=== PATIENT | male | born 1990 | race Caucasian/White ===

== ENCOUNTER → 2020-10-09 10:03 | Outpatient (CLI) | payer OTHER, SELFPAY ==
[2020-10-09 11:31] LABS: Liquefaction Semen YES (YES); PH Semen 8.5 (7-8); Sperm Count 90 x10^6/mL (20-150); Sperm Motility 40% % Motile
[2020-10-09 11:32] LABS: Sperm Morphology 44 %ABNORM (0-30)
== END ==
PROVIDERS: PCP Radiology Diagnostic Radiology; Referring Provider Obstetrics & Gynecology; Visit Provider Obstetrics & Gynecology
DX: Z31.69 Encounter for other general counseling and advice on procreation (principal)
CPT/HCPCS: 89320

== ENCOUNTER 2023-09-07 14:30 | Outpatient (RCR) | payer OTHER, SELFPAY ==
--- NOTE | 2023-07-12 16:20 | PT.OIE ---
Current Diagnoses Pain in left shoulder (07/12/23) Stiffness of unspecified shoulder, not elsewhere classified (07/12/23) Weakness (07/12/23) Visit Care Team Role Provider Type Breanna Singh MD Primary Care Provider Non-Staff Specialty: Medical Address: [address] [place] [address], [address] Phone: Fax: Email: Deon Marcos Attending Provider Non-Staff Family Provider Referring Provider Specialty: Medical Address: [address] [place] [address], [address] Fax: Email: Physical Therapy Initial Evaluation PT-OP-A Visit Information Start: 07/11/23 16:17 Freq: Status: Active Protocol: Document 07/12/23 11:28 SAK (Rec: 07/12/23 12:22 SAK [id number]) Out-Patient Physical Therapy Visit Information Visit Information Visit Type Initial Evaluation Visit Start Time 11:29 Visit Stop Time 12:07 Visit Number 1 PT-OP-B Current Condition Start: 07/11/23 16:17 Freq: Status: Active Protocol: Document 07/12/23 11:28 SAK (Rec: 07/12/23 12:22 SAK [id number]) Current Condition History of Current Condition Onset Date 1 1/2 years ago Current Complaints bilateral scapular winging left greater than right History of Current Condition 8-10 years ago noted winging of shoulder, has gradully started to limit his mobility and activities including rowing, normal workouts including pushups. Denies injury. No numbness or tingling. Hears grinding with movement of his left shoulder Right handed. Prior Treatments and Tests none no imaging Treatment Goals Patient/Caregiver Goals Be able to do all usual activities without pain or limitation. 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; has desk job Functional Limitations- Recreation/ limited ability to do rowing, Hobbies push-ups, other usual exercises with shoulder PT-OP-C Subjective Start: 07/11/23 16:17 Freq: Status: Active Protocol: Document 07/12/23 11:28 SAK (Rec: 07/12/23 16:20 [facility] [id number]) OP-PT Pain Assessment Pain Assessment Grid Paper Pain Assessment Grid Completed Yes Location Left Shoulder Intensity 3 Scale Used Numeric (0 - 10) Description Aching,With Movement Frequency Frequent Pain Aggravating Factors Activity,Exercise Other Pain Aggravating Factors reaching forward Pain Behaviors Pain Behaviors Facial Grimacing PT-OP-F Manual Assessment Start: 07/11/23 16:17 Freq: Status: Active Protocol: Document 07/12/23 11:28 [facility] (Rec: 07/12/23 12:22 [facility] [id number]) Manual Assessments Soft Tissue Assessment Soft Tissue Mobility Assessment Tight upper traps PT-OP-H Neuro Start: 07/11/23 16:17 Freq: Status: Active Protocol: Document 07/12/23 11:28 [facility] (Rec: 07/12/23 16:20 [facility] [id number]) Sensation Evaluation Gross Sensation Gross Sensation WNL PT-OP-J Posture/Palpation/Skin Start: 07/11/23 16:17 Freq: Status: Active Protocol: Document 07/12/23 11:28 [facility] (Rec: 07/12/23 12:22 [facility] [id number]) Posture Evaluation Position Sitting T-Spine Posture Increased Kyphosis Shoulder Posture (L) Rounded,(R) Rounded,(L) Forward Scapula Posture (L) Protracted,(R) Protracted Arm Posture (L) Internally Rotated,(R) Internally Rotated Palpation Assessment Location left shoulder Palpation Details popping and grinding sensation with AROM shoulder PT-OP-K Range of Motion Start: 07/11/23 16:17 Freq: Status: Active Protocol: Document 07/12/23 11:28 [facility] (Rec: 07/12/23 16:20 [facility] [id number]) Shoulder Goniometric Range of Motion Shoulder Left Flexion 170 Extension 35 Abduction 165 External Rotation at 45 degrees 75 Abduction Internal Rotation 55 Comments pain end range right Shoulder ROM WFL Yes Shoulder ROM Limitations Shoulder ROM Limitations Pain Elbow/Forearm Range of Motion Elbow/Forearm may Elbow/Forearm ROM WFL Yes PT-OP-L Special Tests Start: 07/11/23 16:17 Freq: Status: Active Protocol: Document 07/12/23 11:28 [facility] (Rec: 07/12/23 16:20 [facility] [id number]) Special Tests Shoulder Special Tests Grind Labrum Test Results neg Drop Arm Rotator Cuff Test Results neg Clunk Test Test Results negative PT-OP-M Strength Start: 07/11/23 16:17 Freq: Status: Active Protocol: Document 07/12/23 11:28 [facility] (Rec: 07/12/23 16:20 [facility] [id number]) Shoulder Strength Shoulder Manual Muscle Testing Left Flexion 4 Good Extension 4 Good Abduction (C5) 4 Good Adduction 4+ Good+ External Rotation 4 Good Internal Rotation 4- Good- Horizontal Abduction 4- Good- Horizontal Adduction 4 Good Right Flexion 5 Normal Extension 5 Normal Abduction (C5) 5 Normal Adduction 5 Normal External Rotation 4+ Good+ Internal Rotation 4 Good Horizontal Abduction 4 Good Horizontal Adduction 4+ Good+ PT-OP-Q Treatments Start: 07/11/23 16:17 Freq: Status: Active Protocol: Document 07/12/23 11:28 [facility] (Rec: 07/12/23 12:22 [facility] [id number]) Self-Care/Home Management Treatment Education Patient Education Home Exercise Program,Posture Other Education issued written HO PT-OP-T Assessment and Plan Start: 07/11/23 16:17 Freq: Status: Active Protocol: Document 07/12/23 11:28 [facility] (Rec: 07/12/23 12:22 [facility] [id number]) Physical Therapy Assessment Rehab Potential Rehabilitation Potential Good Evaluation Complexity Number of Personal Factors/Comorbidities 1-2 Number of Body Systems Impaired 3 Clinical Presentation at Evaluation Evolving Impairments Impairments Activity Tolerance,Posture, Strength Goals Two Impairment inability to perform usual recreational activites or workouts Impairment due to shoulder pain Short Term Goal (STG) Decrease pain by at least 50% with all usual activities STG Duration 08/10/23 Custodial Goal (LTG) Patient able to return to all prior activities without an increase in shoulder pain LTG Duration 09/10/23 One Impairment weakness may shoulders left greater than right Short Term Goal (STG) Patient to be instructed in HEP for the purposes of strengthening and stabilization of his shoulders to support therapy activities in clinic STG Duration 08/10/23 Gas Examiner Goal (LTG) Patient to be independent and compliant with HEP and demonstrate 5/5 muscle strengthe may shoulders LTG Duration 09/10/23 Assessment Summary Assessment Patient presents to PT with function-limiting pain with scapular winging may left greater than right and grinding sensation with movement left shoulder. Eval reveals weakness posterior shoulders, decreased stability left shoulder with altered scapulohumeral rhythm. Feel he will benefit from PT to improve posture, strength, and stability in his shoulders. Patient is highly motivated and demonstrated good understanding. Patient was issued an initial HEP. Discussed POC and he was in agreement. Physical Therapy Plan Frequency and Duration Frequency of Treatment 2x/Week Duration of treatment (weeks) 8 Plan of Care Start Date 07/12/23 Plan of Care End Date 09/10/23 Therapeutic Interventions Therapeutic Interventions Home Exercise Program,Manual Therapy,Patient/Caregiver Education,Self-Care/Home Management,Therapeutic Exercises Modalities Cold Pack/Ice Massage,Electric Stimulation,Hot Packs, Iontophoresis,Ultrasound Next Visit Focus/Plan Next Note Type Treatment Note Next Visit Plan Review HEP, work on scapular strengthening and shoulder stabilization, posterior chain strengthening, modalities and manual therapy PRN.
--- NOTE | 2023-07-12 16:21 | PT.OPPOC ---
Physical, Occupational & Speech Therapy At [facility] Current Diagnoses Pain in left shoulder (07/12/23) Stiffness of unspecified shoulder, not elsewhere classified (07/12/23) Weakness (07/12/23) Visit Care Team Role Provider Type Breanna Singh MD Primary Care Provider Non-Staff Specialty: Medical Address: [address] [place] [address], [address] Phone: Fax: Email: Deon Marcos Attending Provider Non-Staff Family Provider Referring Provider Specialty: Medical Address: [address] [place] [address], [address] Fax: Email: Plan Of Care PT-OP-T Assessment and Plan Start: 07/11/23 16:17 Freq: Status: Active Protocol: Document 07/12/23 11:28 [facility] (Rec: 07/12/23 12:22 [facility] [id number]) Physical Therapy Assessment Rehab Potential Rehabilitation Potential Good Evaluation Complexity Number of Personal Factors/Comorbidities 1-2 Number of Body Systems Impaired 3 Clinical Presentation at Evaluation Evolving Impairments Impairments Activity Tolerance,Posture, Strength Goals Two Impairment inability to perform usual recreational activites or workouts Impairment due to shoulder pain Short Term Goal (STG) Decrease pain by at least 50% with all usual activities STG Duration 08/10/23 Records Management Specialist Goal (LTG) Patient able to return to all prior activities without an increase in shoulder pain LTG Duration 09/10/23 One Impairment weakness may shoulders left greater than right Short Term Goal (STG) Patient to be instructed in HEP for the purposes of strengthening and stabilization of his shoulders to support therapy activities in clinic STG Duration 08/10/23 [facility] Goal (LTG) Patient to be independent and compliant with HEP and demonstrate 5/5 muscle strengthe may shoulders LTG Duration 09/10/23 Assessment Summary Assessment Patient presents to PT with function-limiting pain with scapular winging may left greater than right and grinding sensation with movement left shoulder. Eval reveals weakness posterior shoulders, decreased stability left shoulder with altered scapulohumeral rhythm. Feel he will benefit from PT to improve posture, strength, and stability in his shoulders. Patient is highly motivated and demonstrated good understanding. Patient was issued an initial HEP. Discussed POC and he was in agreement. Physical Therapy Plan Frequency and Duration Frequency of Treatment 2x/Week Duration of treatment (weeks) 8 Plan of Care Start Date 07/12/23 Plan of Care End Date 09/10/23 Therapeutic Interventions Therapeutic Interventions Home Exercise Program,Manual Therapy,Patient/Caregiver Education,Self-Care/Home Management,Therapeutic Exercises Modalities Cold Pack/Ice Massage,Electric Stimulation,Hot Packs, Iontophoresis,Ultrasound Next Visit Focus/Plan Next Note Type Treatment Note Next Visit Plan Review HEP, work on scapular strengthening and shoulder stabilization, posterior chain strengthening, modalities and manual therapy PRN. Plan of Care Dates Plan of Care Start Date 07/12/23 Plan of Care End Date 09/10/23 Electronically Signed by: Anh Lee, PT 07/12/23 1553 If you are in agreement with this Plan of Care, please return a signed and dated copy. I have reviewed this Plan of Care and certify that the skilled therapy services above are required to meet the patient?s needs. Physician Signature Date Printed Name and Credentials Clinical Instructor Signature Printed Name and Credentials
--- NOTE | 2023-07-27 10:29 | PT.OTN ---
Current Diagnoses Pain in left shoulder (07/27/23) Stiffness of unspecified shoulder, not elsewhere classified (07/27/23) Weakness (07/27/23) Physical Therapy Treatment Note PT-OP-A Visit Information Start: 07/11/23 16:17 Freq: Status: Active Protocol: Document 07/27/23 09:49 SP (Rec: 07/27/23 10:31 SP [id number]) Out-Patient Physical Therapy Visit Information Visit Information Visit Type Treatment Note Visit Start Time 09:49 Visit Stop Time 10:29 Visit Number 2 Number of HOME CONNECT LPN Visits 1 PT-OP-B Current Condition Start: 07/11/23 16:17 Freq: Status: Active Protocol: Document 07/12/23 11:28 SAK (Rec: 07/12/23 12:22 SAK [id number]) Current Condition History of Current Condition Onset Date 1 1/2 years ago Current Complaints bilateral scapular winging left greater than right History of Current Condition 8-10 years ago noted winging of shoulder, has gradully started to limit his mobility and activities including rowing, normal workouts including pushups. Denies injury. No numbness or tingling. Hears grinding with movement of his left shoulder Right handed. Prior Treatments and Tests none no imaging Treatment Goals Patient/Caregiver Goals Be able to do all usual activities without pain or limitation. 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 He reports L > R is irritated and clicking with daily activity. New WB on L elbow as arm rest oncouch feeding twins hurt not last > 20 sec before need stop, R ok. PT-OP-F Manual Assessment Start: 07/11/23 16:17 Freq: Status: Active Protocol: Document 07/12/23 11:28 [facility] (Rec: 07/12/23 12:22 [facility] [id number]) Manual Assessments Soft Tissue Assessment Soft Tissue Mobility Assessment Tight upper traps PT-OP-H Neuro Start: 07/11/23 16:17 Freq: Status: Active Protocol: Document 07/12/23 11:28 [facility] (Rec: 07/12/23 16:20 [facility] [id number]) Sensation Evaluation Gross Sensation Gross Sensation WNL PT-OP-J Posture/Palpation/Skin Start: 07/11/23 16:17 Freq: Status: Active Protocol: Document 07/12/23 11:28 [facility] (Rec: 07/12/23 12:22 [facility] [id number]) Posture Evaluation Position Sitting T-Spine Posture Increased Kyphosis Shoulder Posture (L) Rounded,(R) Rounded,(L) Forward Scapula Posture (L) Protracted,(R) Protracted Arm Posture (L) Internally Rotated,(R) Internally Rotated Palpation Assessment Location left shoulder Palpation Details popping and grinding sensation with AROM shoulder PT-OP-K Range of Motion Start: 07/11/23 16:17 Freq: Status: Active Protocol: Document 07/12/23 11:28 [facility] (Rec: 07/12/23 16:20 [facility] [id number]) Shoulder Goniometric Range of Motion Shoulder Left Flexion 170 Extension 35 Abduction 165 External Rotation at 45 degrees 75 Abduction Internal Rotation 55 Comments pain end range right Shoulder ROM WFL Yes Shoulder ROM Limitations Shoulder ROM Limitations Pain Elbow/Forearm Range of Motion Elbow/Forearm may Elbow/Forearm ROM WFL Yes PT-OP-L Special Tests Start: 07/11/23 16:17 Freq: Status: Active Protocol: Document 07/12/23 11:28 [facility] (Rec: 07/12/23 16:20 [facility] [id number]) Special Tests Shoulder Special Tests Grind Labrum Test Results neg Drop Arm Rotator Cuff Test Results neg Clunk Test Test Results negative PT-OP-M Strength Start: 07/11/23 16:17 Freq: Status: Active Protocol: Document 07/12/23 11:28 [facility]AK (Rec: 07/12/23 16:20 [facility] [id number]) Shoulder Strength Shoulder Manual Muscle Testing Left Flexion 4 Good Extension 4 Good Abduction (C5) 4 Good Adduction 4+ Good+ External Rotation 4 Good Internal Rotation 4- Good- Horizontal Abduction 4- Good- Horizontal Adduction 4 Good Right Flexion 5 Normal Extension 5 Normal Abduction (C5) 5 Normal Adduction 5 Normal External Rotation 4+ Good+ Internal Rotation 4 Good Horizontal Abduction 4 Good Horizontal Adduction 4+ Good+ PT-OP-Q Treatments Start: 07/11/23 16:17 Freq: Status: Active Protocol: Document 07/27/23 09:49 SP (Rec: 07/27/23 10:31 SP [id number]) Therapeutic Exercises Supine Exercises serratus press Side bilateral Resistance AROM Reps/Minutes 10 reps hold 5 sec Comments discussed not performed Sidelying Exercises ER Side bilateral Resistance AROM Reps/Minutes 10x hold 5 sec Comments discussed not performed ABD, HABD, FF Sidelying Exercise Name added to HEP Side bilateral Resistance AROM Reps/Minutes x8-10 each Comments ed slow, tactile cues Standing Exercises reach OH Standing Exercise Name reviewed HEP Resistance AROM Comments discussed is doing but pinching, not performed isometrics Standing Exercise Name Flex, ext, IR, ER, ADD, ABD- reviewed HEP Side bilateral Equipment Used towel roll under arm for IR/ ER Reps/Minutes 5 SH x5 Comments good form at door frame Manual Therapy Treatment Joint Mobilizations L GH jt Direction inf, posterior glide Grade II Body Position Hooklying B scapulothoracic Joint tactile cues Direction retraction/protraction/ depression/UR Body Position side Comments /c FM FF, ABD, HABD PT-OP-T Assessment and Plan Start: 07/11/23 16:17 Freq: Status: Active Protocol: Document 07/27/23 09:49 SP (Rec: 07/27/23 10:31 SP [id number]) Physical Therapy Assessment Goals Two Impairment inability to perform usual recreational activites or workouts Impairment due to shoulder pain Short Term Goal (STG) Decrease pain by at least 50% with all usual activities STG Duration 08/10/23 Fdc Goal (LTG) Patient able to return to all prior activities without an increase in shoulder pain LTG Duration 09/10/23 One Impairment weakness may shoulders left greater than right Short Term Goal (STG) Patient to be instructed in [facility] for the purposes of strengthening and stabilization of his shoulders to support therapy activities in clinic STG Duration 08/10/23 Lens Blocker Goal (LTG) Patient to be independent and compliant with HEP and demonstrate 5/5 muscle strengthe may shoulders LTG Duration 09/10/23 Assessment Summary Assessment Pt able perform improved proximal humeral inferior glide and scapular UR ROM during sidelying FF, ABD, HABD post manual painfree, initially required tactile and verbal cues for slower pacing and scapular/GH guided ROM with humeral into long axis ER 90 deg ABD +. Provided HOs for carryover home performance as additional HEP. Good form UE isometrics, occasional cues for set up. Education for trunk and CS postural awareness with HEP retraction scap/ CS to allow decrease strain on neck/scap looking at baby twins during feeding, play. Improved carryover with cued corrections CS alignment during standing HEP. Physical Therapy Plan Frequency and Duration Frequency of Treatment 2x/Week Duration of treatment (weeks) 8 Plan of Care Start Date 07/12/23 Plan of Care End Date 09/10/23 Therapeutic Interventions Therapeutic Interventions Home Exercise Program,Manual Therapy,Patient/Caregiver Education,Self-Care/Home Management,Therapeutic Exercises Modalities Cold Pack/Ice Massage,Electric Stimulation,Hot Packs, Iontophoresis,Ultrasound Next Visit Focus/Plan Next Note Type Treatment Note Next Visit Plan Review HEP, Next add adduction and humeral deprresssion to support WB through elbow discomfort during feeding twins. POC: work on scapular strengthening and shoulder stabilization, posterior chain strengthening, modalities and manual therapy PRN.
--- NOTE | 2023-08-03 10:52 | PT.OTN ---
Current Diagnoses Pain in left shoulder (08/03/23) Stiffness of unspecified shoulder, not elsewhere classified (08/03/23) Weakness (08/03/23) Physical Therapy Treatment Note PT-OP-A Visit Information Start: 07/11/23 16:17 Freq: Status: Active Protocol: Document 08/03/23 08:14 SAK (Rec: 08/03/23 09:01 [facility] [id number]) Out-Patient Physical Therapy Visit Information Visit Information Visit Type Treatment Note Visit Start Time 08:14 Visit Stop Time 09:02 Visit Number 3 Number of GREEN MARKETING SPECIALIST Visits 0 Evaluation Information Evaluation Date 07/12/23 PT-OP-B Current Condition Start: 07/11/23 16:17 Freq: Status: Active Protocol: Document 08/03/23 08:14 SAK (Rec: 08/03/23 09:01 [facility] [id number]) Current Condition History of Current Condition Onset Date 1 1/2 years ago Current Complaints bilateral scapular winging left greater than right History of Current Condition 8-10 years ago noted winging of shoulder, has gradully started to limit his mobility and activities including rowing, normal workouts including pushups. Denies injury. No numbness or tingling. Hears grinding with movement of his left shoulder Right handed. Prior Treatments and Tests none no imaging Treatment Goals Patient/Caregiver Goals Be able to do all usual activities without pain or limitation. PT-OP-C Subjective Start: 07/11/23 16:17 Freq: Status: Active Protocol: Document 08/03/23 08:14 SAK (Rec: 08/03/23 09:01 [facility] [id number]) OP-PT Subjective Patient Comments Patient Comments No real change, min ability to do ex due to twin infants PT-OP-F Manual Assessment Start: 07/11/23 16:17 Freq: Status: Active Protocol: Document 07/12/23 11:28 SAK (Rec: 07/12/23 12:22 SAK [id number]) Manual Assessments Soft Tissue Assessment Soft Tissue Mobility Assessment Tight upper traps PT-OP-H Neuro Start: 07/11/23 16:17 Freq: Status: Active Protocol: Document 07/12/23 11:28 SAK (Rec: 07/12/23 16:20 SAK [id number]) Sensation Evaluation Gross Sensation Gross Sensation WNL PT-OP-J Posture/Palpation/Skin Start: 07/11/23 16:17 Freq: Status: Active Protocol: Document 07/12/23 11:28 [facility] (Rec: 07/12/23 12:22 [facility] [id number]) Posture Evaluation Position Sitting T-Spine Posture Increased Kyphosis Shoulder Posture (L) Rounded,(R) Rounded,(L) Forward Scapula Posture (L) Protracted,(R) Protracted Arm Posture (L) Internally Rotated,(R) Internally Rotated Palpation Assessment Location left shoulder Palpation Details popping and grinding sensation with AROM shoulder PT-OP-K Range of Motion Start: 07/11/23 16:17 Freq: Status: Active Protocol: Document 07/12/23 11:28 [facility] (Rec: 07/12/23 16:20 [facility] [id number]) Shoulder Goniometric Range of Motion Shoulder Left Flexion 170 Extension 35 Abduction 165 External Rotation at 45 degrees 75 Abduction Internal Rotation 55 Comments pain end range right Shoulder ROM WFL Yes Shoulder ROM Limitations Shoulder ROM Limitations Pain Elbow/Forearm Range of Motion Elbow/Forearm may Elbow/Forearm ROM WFL Yes PT-OP-L Special Tests Start: 07/11/23 16:17 Freq: Status: Active Protocol: Document 07/12/23 11:28 [facility] (Rec: 07/12/23 16:20 [facility] [id number]) Special Tests Shoulder Special Tests Grind Labrum Test Results neg Drop Arm Rotator Cuff Test Results neg Clunk Test Test Results negative PT-OP-M Strength Start: 07/11/23 16:17 Freq: Status: Active Protocol: Document 07/12/23 11:28 [facility] (Rec: 07/12/23 16:20 [facility] [id number]) Shoulder Strength Shoulder Manual Muscle Testing Left Flexion 4 Good Extension 4 Good Abduction (C5) 4 Good Adduction 4+ Good+ External Rotation 4 Good Internal Rotation 4- Good- Horizontal Abduction 4- Good- Horizontal Adduction 4 Good Right Flexion 5 Normal Extension 5 Normal Abduction (C5) 5 Normal Adduction 5 Normal External Rotation 4+ Good+ Internal Rotation 4 Good Horizontal Abduction 4 Good Horizontal Adduction 4+ Good+ PT-OP-Q Treatments Start: 07/11/23 16:17 Freq: Status: Active Protocol: Document 08/03/23 08:14 [facility] (Rec: 08/03/23 09:01 SAK [id number]) Therapeutic Exercises Supine Exercises serratus press Side bilateral Equipment Used 4# Reps/Minutes 10 reps hold 5 sec Sitting Exercises scap engagement Sitting Exercise Name elbow on bolster Reps/Minutes 5x Comments pressure into bolster to facil scap engagement and shoulder stab Standing Exercises shoulder add Equipment Used L2 TB Reps/Minutes 5x Comments discontinued; unable to do without popping and clicking in left shoulder row, shld ext, sh ER Resistance L2 TB Reps/Minutes 10x2 Body blade Standing Exercise Name may, unil Reps/Minutes 30 sec ea Comments may in front, unil at side, elbow bent 90 fwd, elbow bIR/ ER, overhead 90/90 isometrics Comments encouraged tracie add due to poor sara TB PT-OP-T Assessment and Plan Start: 07/11/23 16:17 Freq: Status: Active Protocol: Document 08/03/23 08:14 ROYCE (Rec: 08/03/23 09:01 [facility] [id number]) Physical Therapy Assessment Goals Two Impairment inability to perform usual recreational activites or workouts Impairment due to shoulder pain Short Term Goal (STG) Decrease pain by at least 50% with all usual activities STG Duration 08/10/23 Mcc Goal (LTG) Patient able to return to all prior activities without an increase in shoulder pain LTG Duration 09/10/23 One Impairment weakness may shoulders left greater than right Short Term Goal (STG) Patient to be instructed in HEP for the purposes of strengthening and stabilization of his shoulders to support therapy activities in clinic STG Duration 08/10/23 Mcc Goal (LTG) Patient to be independent and compliant with HEP and demonstrate 5/5 muscle strengthe may shoulders LTG Duration 09/10/23 Assessment Summary Assessment Patient best tolerance for left shoulder elevation supine over foam roller with theraband resistance. Able to add weight to supine scapular punch with good tolerance. Ran out of time to review sidelying ex; recommend do next session. Updated written HO issued for HEP. Patient better able to feel engagement of scapular muscles today. Physical Therapy Plan Frequency and Duration Frequency of Treatment 2x/Week Duration of treatment (weeks) 8 Plan of Care Start Date 07/12/23 Plan of Care End Date 09/10/23 Therapeutic Interventions Therapeutic Interventions Home Exercise Program,Manual Therapy,Patient/Caregiver Education,Self-Care/Home Management,Therapeutic Exercises Modalities Cold Pack/Ice Massage,Electric Stimulation,Hot Packs, Iontophoresis,Ultrasound Next Visit Focus/Plan Next Note Type Treatment Note Next Visit Plan Review HEP, any issues. Continue shoulder stabilization, scap strenthening. Progress exercises supine on foam roller, prone scap, with body blade
--- NOTE | 2023-08-07 08:57 | PT.OTN ---
Current Diagnoses Pain in left shoulder (08/07/23) Stiffness of unspecified shoulder, not elsewhere classified (08/07/23) Weakness (08/07/23) Physical Therapy Treatment Note PT-OP-A Visit Information Start: 07/11/23 16:17 Freq: Status: Active Protocol: Document 08/07/23 08:15 SP (Rec: 08/07/23 09:01 SP [id number]) Out-Patient Physical Therapy Visit Information Visit Information Visit Type Treatment Note Visit Start Time 08:15 Visit Stop Time 08:57 Visit Number 4 Number of FORESTRY WORKER Visits 1 Evaluation Information Evaluation Date 07/12/23 PT-OP-B Current Condition Start: 07/11/23 16:17 Freq: Status: Active Protocol: Document 08/03/23 08:14 SAK (Rec: 08/03/23 09:01 SAK [id number]) Current Condition History of Current Condition Onset Date 1 1/2 years ago Current Complaints bilateral scapular winging left greater than right History of Current Condition 8-10 years ago noted winging of shoulder, has gradully started to limit his mobility and activities including rowing, normal workouts including pushups. Denies injury. No numbness or tingling. Hears grinding with movement of his left shoulder Right handed. Prior Treatments and Tests none no imaging Treatment Goals Patient/Caregiver Goals Be able to do all usual activities without pain or limitation. PT-OP-C Subjective Start: 07/11/23 16:17 Freq: Status: Active Protocol: Document 08/07/23 08:15 SP (Rec: 08/07/23 09:01 SP [id number]) OP-PT Subjective Patient Comments Patient Comments Pt reports little less pain but doing alot so hard to tell . More mobility. COmpliant with HEP. PT-OP-F Manual Assessment Start: 07/11/23 16:17 Freq: Status: Active Protocol: Document 07/12/23 11:28 SAK (Rec: 07/12/23 12:22 SAK [id number]) Manual Assessments Soft Tissue Assessment Soft Tissue Mobility Assessment Tight upper traps PT-OP-H Neuro Start: 07/11/23 16:17 Freq: Status: Active Protocol: Document 07/12/23 11:28 SAK (Rec: 07/12/23 16:20 SAK [id number]) Sensation Evaluation Gross Sensation Gross Sensation WNL PT-OP-J Posture/Palpation/Skin Start: 02/13/24 16:17 Freq: Status: Active Protocol: Document 07/12/23 11:28 SAK (Rec: 07/12/23 12:22 SAK [id number]) Posture Evaluation Position Sitting T-Spine Posture Increased Kyphosis Shoulder Posture (L) Rounded,(R) Rounded,(L) Forward Scapula Posture (L) Protracted,(R) Protracted Arm Posture (L) Internally Rotated,(R) Internally Rotated Palpation Assessment Location left shoulder Palpation Details popping and grinding sensation with AROM shoulder PT-OP-K Range of Motion Start: 07/11/23 16:17 Freq: Status: Active Protocol: Document 07/12/23 11:28 SAK (Rec: 07/12/23 16:20 SAK [id number]) Shoulder Goniometric Range of Motion Shoulder Left Flexion 170 Extension 35 Abduction 165 External Rotation at 45 degrees 75 Abduction Internal Rotation 55 Comments pain end range right Shoulder ROM WFL Yes Shoulder ROM Limitations Shoulder ROM Limitations Pain Elbow/Forearm Range of Motion Elbow/Forearm may Elbow/Forearm ROM WFL Yes PT-OP-L Special Tests Start: 07/11/23 16:17 Freq: Status: Active Protocol: Document 07/12/23 11:28 SAK (Rec: 07/12/23 16:20 SAK [id number]) Special Tests Shoulder Special Tests Grind Labrum Test Results neg Drop Arm Rotator Cuff Test Results neg Clunk Test Test Results negative PT-OP-M Strength Start: 07/11/23 16:17 Freq: Status: Active Protocol: Document 07/12/23 11:28 SAK (Rec: 07/12/23 16:20 [facility] [id number]) Shoulder Strength Shoulder Manual Muscle Testing Left Flexion 4 Good Extension 4 Good Abduction (C5) 4 Good Adduction 4+ Good+ External Rotation 4 Good Internal Rotation 4- Good- Horizontal Abduction 4- Good- Horizontal Adduction 4 Good Right Flexion 5 Normal Extension 5 Normal Abduction (C5) 5 Normal Adduction 5 Normal External Rotation 4+ Good+ Internal Rotation 4 Good Horizontal Abduction 4 Good Horizontal Adduction 4+ Good+ PT-OP-Q Treatments Start: 07/11/23 16:17 Freq: Status: Active Protocol: Document 08/07/23 08:15 SP (Rec: 08/07/23 09:01 SP [id number]) Therapeutic Exercises Supine Exercises serratus press Supine Exercise Name 1. SP 2. Ts- added to HEP (no HO given) Side bilateral Resistance 5# DB Equipment Used spine along foam roller (has bench home) Reps/Minutes 1. 10 reps hold 5 sec 2. x10 Comments good form, every 5 little click but not pnful Prone Exercises Ts, Is, Ys Prone Exercise Name trialed in PT- added to HEP ( no HO given) Side bilateral Resistance AROM>#1 DB Reps/Minutes 10 each Comments tactile cues for arm positioning, neck neutral forehead on opp arm Sitting Exercises scap engagement Sitting Exercise Name arms locked out hands on seat/ scap pushup Equipment Used bench Reps/Minutes x5 Comments cued scap retraction set 1st Standing Exercises shoulder add Equipment Used L2> 6 TB Reps/Minutes 5x Comments discontinued; unable to do without popping and clicking in left shoulder row, shld ext, sh ER Standing Exercise Name HEP reviewed Resistance L2>4>5>6 purple TB Equipment Used L6 ext, L6+2 row, L2 ER Reps/Minutes 10x2 each Comments reported good effort, cued palm up/elbow flex 120 deg then ER/rhomb con&ecc PT-OP-T Assessment and Plan Start: 07/11/23 16:17 Freq: Status: Active Protocol: Document 08/07/23 08:15 SP (Rec: 08/07/23 09:01 SP [id number]) Physical Therapy Assessment Goals Two Impairment inability to perform usual recreational activites or workouts Impairment due to shoulder pain Short Term Goal (STG) Decrease pain by at least 50% with all usual activities STG Duration 08/10/23 Penitentiary Goal (LTG) Patient able to return to all prior activities without an increase in shoulder pain LTG Duration 09/10/23 One Impairment weakness may shoulders left greater than right Short Term Goal (STG) Patient to be instructed in HEP for the purposes of strengthening and stabilization of his shoulders to support therapy activities in clinic STG Duration 08/10/23 Penitentiary Goal (LTG) Patient to be independent and compliant with HEP and demonstrate 5/5 muscle strengthe may shoulders LTG Duration 09/10/23 Assessment Summary Assessment Pt was able to increased TB resistance today with improved rhomboid and LT fac and corrections set positioning concentric and eccentric with tactile cuing. Added prone and supine over foam roller ( bench home) with resistance, little clicks but arm ER range needed helped to reduce this for progression strengthening. He reports no pain end tx. Physical Therapy Plan Frequency and Duration Frequency of Treatment 2x/Week Duration of treatment (weeks) 8 Plan of Care Start Date 07/12/23 Plan of Care End Date 09/10/23 Therapeutic Interventions Therapeutic Interventions Home Exercise Program,Manual Therapy,Patient/Caregiver Education,Self-Care/Home Management,Therapeutic Exercises Modalities Cold Pack/Ice Massage,Electric Stimulation,Hot Packs, Iontophoresis,Ultrasound Next Visit Focus/Plan Next Note Type Treatment Note Next Visit Plan Review HEP, any issues. Continue shoulder stabilization, scap strenthening. Progress exercises supine on foam roller, prone scap, with body blade
--- NOTE | 2023-08-09 08:58 | PT.OTN ---
Current Diagnoses Pain in left shoulder (08/09/23) Stiffness of unspecified shoulder, not elsewhere classified (08/09/23) Weakness (08/09/23) Physical Therapy Treatment Note PT-OP-A Visit Information Start: 07/11/23 16:17 Freq: Status: Active Protocol: Document 08/09/23 08:20 SP (Rec: 08/09/23 09:00 SP [id number]) Out-Patient Physical Therapy Visit Information Visit Information Visit Type Treatment Note Visit Start Time 08:20 Visit Stop Time 08:58 Visit Number 5 Number of ASSEMBLER PING PONG TABLE Visits 2 PT-OP-B Current Condition Start: 07/11/23 16:17 Freq: Status: Active Protocol: Document 08/03/23 08:14 SAK (Rec: 08/03/23 09:01 SAK [id number]) Current Condition History of Current Condition Onset Date 1 1/2 years ago Current Complaints bilateral scapular winging left greater than right History of Current Condition 8-10 years ago noted winging of shoulder, has gradully started to limit his mobility and activities including rowing, normal workouts including pushups. Denies injury. No numbness or tingling. Hears grinding with movement of his left shoulder Right handed. Prior Treatments and Tests none no imaging Treatment Goals Patient/Caregiver Goals Be able to do all usual activities without pain or limitation. PT-OP-C Subjective Start: 07/11/23 16:17 Freq: Status: Active Protocol: Document 08/09/23 08:20 SP (Rec: 08/09/23 16:47 SP [id number]) OP-PT Subjective Patient Comments Patient Comments Pt reports felt ok after last tx. He still has pain with pushing forward motions and or holding out in front with LUE . PT-OP-F Manual Assessment Start: 07/11/23 16:17 Freq: Status: Active Protocol: Document 07/12/23 11:28 SAK (Rec: 07/12/23 12:22 SAK [id number]) Manual Assessments Soft Tissue Assessment Soft Tissue Mobility Assessment Tight upper traps PT-OP-H Neuro Start: 07/11/23 16:17 Freq: Status: Active Protocol: Document 07/12/23 11:28 SAK (Rec: 07/12/23 16:20 SAK [id number]) Sensation Evaluation Gross Sensation Gross Sensation WNL PT-OP-J Posture/Palpation/Skin Start: 07/11/23 16:17 Freq: Status: Active Protocol: Document 07/12/23 11:28 [facility] (Rec: 07/12/23 12:22 SAK [id number]) Posture Evaluation Position Sitting T-Spine Posture Increased Kyphosis Shoulder Posture (L) Rounded,(R) Rounded,(L) Forward Scapula Posture (L) Protracted,(R) Protracted Arm Posture (L) Internally Rotated,(R) Internally Rotated Palpation Assessment Location left shoulder Palpation Details popping and grinding sensation with AROM shoulder PT-OP-K Range of Motion Start: 07/11/23 16:17 Freq: Status: Active Protocol: Document 07/12/23 11:28 SAK (Rec: 07/12/23 16:20 SAK [id number]) Shoulder Goniometric Range of Motion Shoulder Left Flexion 170 Extension 35 Abduction 165 External Rotation at 45 degrees 75 Abduction Internal Rotation 55 Comments pain end range right Shoulder ROM WFL Yes Shoulder ROM Limitations Shoulder ROM Limitations Pain Elbow/Forearm Range of Motion Elbow/Forearm may Elbow/Forearm ROM WFL Yes PT-OP-L Special Tests Start: 07/11/23 16:17 Freq: Status: Active Protocol: Document 07/12/23 11:28 [facility] (Rec: 07/12/23 16:20 SAK [id number]) Special Tests Shoulder Special Tests Grind Labrum Test Results neg Drop Arm Rotator Cuff Test Results neg Clunk Test Test Results negative PT-OP-M Strength Start: 07/11/23 16:17 Freq: Status: Active Protocol: Document 07/12/23 11:28 SAK (Rec: 07/12/23 16:20 [facility] [id number]) Shoulder Strength Shoulder Manual Muscle Testing Left Flexion 4 Good Extension 4 Good Abduction (C5) 4 Good Adduction 4+ Good+ External Rotation 4 Good Internal Rotation 4- Good- Horizontal Abduction 4- Good- Horizontal Adduction 4 Good Right Flexion 5 Normal Extension 5 Normal Abduction (C5) 5 Normal Adduction 5 Normal External Rotation 4+ Good+ Internal Rotation 4 Good Horizontal Abduction 4 Good Horizontal Adduction 4+ Good+ PT-OP-Q Treatments Start: 07/11/23 16:17 Freq: Status: Active Protocol: Document 08/09/23 08:20 SP (Rec: 08/09/23 09:00 SP [id number]) Therapeutic Exercises Supine Exercises pec stretch Supine Exercise Name stretch various angles, snow angles Side bilateral Equipment Used over foam roller Reps/Minutes 10 SH 3 positions, 5 reps Comments feels fine serratus press Supine Exercise Name 1. FF 2. SerrPress 3. Ts- added to HEP (no HO given) Side bilateral Resistance 1. 7# DB 2-3. 5# DB (7# next tx) Equipment Used spine along foam roller (has bench home) Reps/Minutes 1. 10 reps hold 5 sec 2. x10 Comments good form, every 5 little click but not pnful Prone Exercises Ts, Is, Ys Prone Exercise Name added to HEP (no HO given) Side bilateral Resistance 3>5#DB Ts, Is, AROM Ys Reps/Minutes 10 each Comments tactile cues for arm positioning Ys, neck neutral forehead on opp arm Standing Exercises pushc up Standing Exercise Name assess off feet, tall BUEs- has PRT in2 weeks Resistance (? reps for PRT) Reps/Minutes 5 reps Comments occ slight wing but stop able reset elbow plank Standing Exercise Name assess off feet- for PRT in 2 weeks Equipment Used (2 min hold for PRT) Comments winging after 3 sec- challenge Ys off wall Standing Exercise Name trialed in PT- added to HEP declined HO Side bilateral Resistance TB #3 Reps/Minutes x12 Comments slight occ clicking, not pain wall walking Standing Exercise Name BUEs on rail- added to HEP- declined HO Resistance TB #2 Equipment Used on rail best (tall ff 90 deg and elbow winging) Reps/Minutes 20 ft x Comments reports good tiring but Body blade Standing Exercise Name may front only & unil multidirectional Reps/Minutes 30 sec ea Comments may in front; unil at side, elbow bent 90 fwd, elbow bIR/ ER, overhead 90/90 PT-OP-T Assessment and Plan Start: 07/11/23 16:17 Freq: Status: Active Protocol: Document 08/09/23 08:20 SP (Rec: 08/09/23 09:00 SP [id number]) Physical Therapy Assessment Goals Two Impairment inability to perform usual recreational activites or workouts Impairment due to shoulder pain Short Term Goal (STG) Decrease pain by at least 50% with all usual activities STG Duration 08/10/23 Detention Goal (LTG) Patient able to return to all prior activities without an increase in shoulder pain LTG Duration 09/10/23 One Impairment weakness may shoulders left greater than right Short Term Goal (STG) Patient to be instructed in HEP for the purposes of strengthening and stabilization of his shoulders to support therapy activities in clinic STG Duration 08/10/23 Detention Goal (LTG) Patient to be independent and compliant with HEP and demonstrate 5/5 muscle strengthe may shoulders LTG Duration 09/10/23 Assessment Summary Assessment Pt responded well to resisted ther ex, cues as needed for head and scap retract/depress set positioning. Slight crunch during OH Ys off wall but minimized with reps for benefits of progress OH, not pain reported. Still demonstrates serratus weakness elbow plank and occasional push ups, has PRT coming up in 2 weeks needs prep these for success. Good scap mobility and strengthening added UE counter/rail walking for Serratus and pec. Physical Therapy Plan Frequency and Duration Frequency of Treatment 2x/Week Duration of treatment (weeks) 8 Plan of Care Start Date 07/12/23 Plan of Care End Date 09/10/23 Therapeutic Interventions Therapeutic Interventions Home Exercise Program,Manual Therapy,Patient/Caregiver Education,Self-Care/Home Management,Therapeutic Exercises Modalities Cold Pack/Ice Massage,Electric Stimulation,Hot Packs, Iontophoresis,Ultrasound Next Visit Focus/Plan Next Note Type Treatment Note Next Visit Plan Review HEP: added Ys off wall, resiste UE walking rail. Reports pushing forward motions still discomfort crunching sub mid scap/ribcage . next progress Serratus Ant Stengthening ideas: bear plank , lateral plank UE AROM vs resisted walking. Has PRT in 2 weeks: plank and push ups. POC: Continue shoulder stabilization, scap strenthening. Progress exercises supine on foam roller, prone scap, with body blade
--- NOTE | 2023-08-11 11:57 | PT.OTN ---
Current Diagnoses Pain in left shoulder (08/11/23) Stiffness of unspecified shoulder, not elsewhere classified (08/11/23) Weakness (08/11/23) Physical Therapy Treatment Note PT-OP-A Visit Information Start: 07/11/23 16:17 Freq: Status: Active Protocol: Document 08/11/23 11:19 SP (Rec: 08/11/23 12:13 SP [id number]) Out-Patient Physical Therapy Visit Information Visit Information Visit Type Treatment Note Visit Start Time 11:19 Visit Stop Time 11:57 Visit Number 6 Number of PRINT [employer] FEEDER Visits 3 Evaluation Information Evaluation Date 07/12/23 PT-OP-B Current Condition Start: 07/11/23 16:17 Freq: Status: Active Protocol: Document 08/03/23 08:14 SAK (Rec: 08/03/23 09:01 SAK [id number]) Current Condition History of Current Condition Onset Date 1 1/2 years ago Current Complaints bilateral scapular winging left greater than right History of Current Condition 8-10 years ago noted winging of shoulder, has gradully started to limit his mobility and activities including rowing, normal workouts including pushups. Denies injury. No numbness or tingling. Hears grinding with movement of his left shoulder Right handed. Prior Treatments and Tests none no imaging Treatment Goals Patient/Caregiver Goals Be able to do all usual activities without pain or limitation. PT-OP-C Subjective Start: 07/11/23 16:17 Freq: Status: Active Protocol: Document 08/11/23 11:19 SP (Rec: 08/11/23 12:13 SP [id number]) OP-PT Subjective Patient Comments Patient Comments Pt report feels same, the UE walking lower was better. PT-OP-F Manual Assessment Start: 07/11/23 16:17 Freq: Status: Active Protocol: Document 07/12/23 11:28 SAK (Rec: 07/12/23 12:22 SAK [id number]) Manual Assessments Soft Tissue Assessment Soft Tissue Mobility Assessment Tight upper traps PT-OP-H Neuro Start: 07/11/23 16:17 Freq: Status: Active Protocol: Document 07/12/23 11:28 SAK (Rec: 07/12/23 16:20 SAK [id number]) Sensation Evaluation Gross Sensation Gross Sensation WNL PT-OP-J Posture/Palpation/Skin Start: 07/11/23 16:17 Freq: Status: Active Protocol: Document 07/12/23 11:28 SAK (Rec: 07/12/23 12:22 SAK [id number]) Posture Evaluation Position Sitting T-Spine Posture Increased Kyphosis Shoulder Posture (L) Rounded,(R) Rounded,(L) Forward Scapula Posture (L) Protracted,(R) Protracted Arm Posture (L) Internally Rotated,(R) Internally Rotated Palpation Assessment Location left shoulder Palpation Details popping and grinding sensation with AROM shoulder PT-OP-K Range of Motion Start: 07/11/23 16:17 Freq: Status: Active Protocol: Document 07/12/23 11:28 SAK (Rec: 07/12/23 16:20 SAK [id number]) Shoulder Goniometric Range of Motion Shoulder Left Flexion 170 Extension 35 Abduction 165 External Rotation at 45 degrees 75 Abduction Internal Rotation 55 Comments pain end range right Shoulder ROM WFL Yes Shoulder ROM Limitations Shoulder ROM Limitations Pain Elbow/Forearm Range of Motion Elbow/Forearm may Elbow/Forearm ROM WFL Yes PT-OP-L Special Tests Start: 07/11/23 16:17 Freq: Status: Active Protocol: Document 07/12/23 11:28 SAK (Rec: 07/12/23 16:20 SAK [id number]) Special Tests Shoulder Special Tests Grind Labrum Test Results neg Drop Arm Rotator Cuff Test Results neg Clunk Test Test Results negative PT-OP-M Strength Start: 07/11/23 16:17 Freq: Status: Active Protocol: Document 07/12/23 11:28 SAK (Rec: 07/12/23 16:20 [facility] [id number]) Shoulder Strength Shoulder Manual Muscle Testing Left Flexion 4 Good Extension 4 Good Abduction (C5) 4 Good Adduction 4+ Good+ External Rotation 4 Good Internal Rotation 4- Good- Horizontal Abduction 4- Good- Horizontal Adduction 4 Good Right Flexion 5 Normal Extension 5 Normal Abduction (C5) 5 Normal Adduction 5 Normal External Rotation 4+ Good+ Internal Rotation 4 Good Horizontal Abduction 4 Good Horizontal Adduction 4+ Good+ PT-OP-Q Treatments Start: 07/11/23 16:17 Freq: Status: Active Protocol: Document 08/11/23 11:19 SP (Rec: 08/11/23 12:13 SP [id number]) Therapeutic Exercises Prone Exercises plank shld activities Prone Exercise Name 1. BUE/BLE lateral walking 2. UE lat 3. shld taps Reps/Minutes 1. 5 ft out back x2 sets 2. 5 steps out/ back x2 3. alternate x5 reps each Comments cues as needed for serratus press, dec small winging. Standing Exercises ball repetitive abd/ER/IR wall ball Standing Exercise Name trialed for distal RTC pos support Resistance AROM (abd 90*) Equipment Used green wt ball, tennis ball bounce on wall Reps/Minutes 20 throw/catch Comments pnfree, tiriing shld ABD IR, eccentric ER Side bilateral Resistance TB #3 green IR, #2 orange ER Reps/Minutes 10 each, BUE Comments tactile cues maintain 90 deg abd, pnfree reported- good effort ER row, shld ext, sh ER Standing Exercise Name HEP reviewed Side bilateral Equipment Used L6 ext, L6+2 row- (progress free bent over wt row & ER) Reps/Minutes 10x2 each Comments reported good effort Body blade Standing Exercise Name serratus press (90*FF) Resistance body blade and hammer Reps/Minutes 30 sec ea x2 BB, 30s hammer Comments good pec minor, long head bicep tiring haven't felt that spot weakness bf Other Exercises quadruped bear plank Other Exercise Name trialed bear plank (quadruped with knee lift) Reps/Minutes 30 SH, 60SH Comments cues for serratus press, knee lift maintain- good quad, core , ok SA PT-OP-T Assessment and Plan Start: 07/11/23 16:17 Freq: Status: Active Protocol: Document 08/11/23 11:19 SP (Rec: 08/11/23 12:13 SP [id number]) Physical Therapy Assessment Goals Two Impairment inability to perform usual recreational activites or workouts Impairment due to shoulder pain Short Term Goal (STG) Decrease pain by at least 50% with all usual activities STG Duration 08/10/23 Police Investigator Goal (LTG) Patient able to return to all prior activities without an increase in shoulder pain LTG Duration 09/10/23 One Impairment weakness may shoulders left greater than right Short Term Goal (STG) Patient to be instructed in HEP for the purposes of strengthening and stabilization of his shoulders to support therapy activities in clinic STG Duration 08/10/23 Longterm Goal (LTG) Patient to be independent and compliant with HEP and demonstrate 5/5 muscle strengthe may shoulders LTG Duration 09/10/23 Assessment Summary Assessment Pt reported some tiring abd/ER wall ball but stated winging weakness more forward pushing. Improved effort and able correct during WB lateral UE stepping in tall plank and serratus plus body blade, tiring and not popping feeling . Pt stated feels more focused was accomplished today to work toward prep for his PRT. Physical Therapy Plan Frequency and Duration Frequency of Treatment 2x/Week Duration of treatment (weeks) 8 Plan of Care Start Date 07/12/23 Plan of Care End Date 09/10/23 Therapeutic Interventions Therapeutic Interventions Home Exercise Program,Manual Therapy,Patient/Caregiver Education,Self-Care/Home Management,Therapeutic Exercises Modalities Cold Pack/Ice Massage,Electric Stimulation,Hot Packs, Iontophoresis,Ultrasound Next Visit Focus/Plan Next Note Type Treatment Note Next Visit Plan Review HEP: Continue serratus press body blade and WB shld taps/walking, resisted rail walking. Continue bear quadruped plank. Has PRT in 2 weeks: plank and push ups. POC: Continue shoulder stabilization, scap strenthening. Progress exercises supine on foam roller, prone scap, with body blade
--- NOTE | 2023-08-14 15:12 | PT.OTN ---
Current Diagnoses Pain in left shoulder (08/14/23) Stiffness of unspecified shoulder, not elsewhere classified (08/14/23) Weakness (08/14/23) Physical Therapy Treatment Note PT-OP-A Visit Information Start: 07/11/23 16:17 Freq: Status: Active Protocol: Document 08/14/23 09:01 [facility] (Rec: 08/14/23 09:49 [facility] [id number]) Out-Patient Physical Therapy Visit Information Visit Information Visit Type Treatment Note Visit Start Time 09:01 Visit Stop Time 09:45 Visit Number 7 Number of ODD JOB WORKER Visits 0 Evaluation Information Evaluation Date 07/12/23 PT-OP-B Current Condition Start: 07/11/23 16:17 Freq: Status: Active Protocol: Document 08/03/23 08:14 SAK (Rec: 08/03/23 09:01 [facility] [id number]) Current Condition History of Current Condition Onset Date 1 1/2 years ago Current Complaints bilateral scapular winging left greater than right History of Current Condition 8-10 years ago noted winging of shoulder, has gradully started to limit his mobility and activities including rowing, normal workouts including pushups. Denies injury. No numbness or tingling. Hears grinding with movement of his left shoulder Right handed. Prior Treatments and Tests none no imaging Treatment Goals Patient/Caregiver Goals Be able to do all usual activities without pain or limitation. PT-OP-C Subjective Start: 07/11/23 16:17 Freq: Status: Active Protocol: Document 08/14/23 09:01 [facility] (Rec: 08/14/23 09:49 [facility] [id number]) OP-PT Subjective Patient Comments Patient Comments Not working out or golfing or house projects due to babies, so not doing typical things that irritate shoulder, except notices increased pain when holding baby in car seat on left painful. [place] soreness and pain after last PT session PT-OP-F Manual Assessment Start: 07/11/23 16:17 Freq: Status: Active Protocol: Document 07/12/23 11:28 SAK (Rec: 07/12/23 12:22 [facility] [id number]) Manual Assessments Soft Tissue Assessment Soft Tissue Mobility Assessment Tight upper traps PT-OP-H Neuro Start: 07/11/23 16:17 Freq: Status: Active Protocol: Document 07/12/23 11:28 SAK (Rec: 07/12/23 16:20 [facility] [id number]) Sensation Evaluation Gross Sensation Gross Sensation WNL PT-OP-J Posture/Palpation/Skin Start: 07/11/23 16:17 Freq: Status: Active Protocol: Document 07/12/23 11:28 [facility] (Rec: 07/12/23 12:22 [facility] [id number]) Posture Evaluation Position Sitting T-Spine Posture Increased Kyphosis Shoulder Posture (L) Rounded,(R) Rounded,(L) Forward Scapula Posture (L) Protracted,(R) Protracted Arm Posture (L) Internally Rotated,(R) Internally Rotated Palpation Assessment Location left shoulder Palpation Details popping and grinding sensation with AROM shoulder PT-OP-K Range of Motion Start: 07/11/23 16:17 Freq: Status: Active Protocol: Document 07/12/23 11:28 [facility] (Rec: 07/12/23 16:20 [facility] [id number]) Shoulder Goniometric Range of Motion Shoulder Left Flexion 170 Extension 35 Abduction 165 External Rotation at 45 degrees 75 Abduction Internal Rotation 55 Comments pain end range right Shoulder ROM WFL Yes Shoulder ROM Limitations Shoulder ROM Limitations Pain Elbow/Forearm Range of Motion Elbow/Forearm may Elbow/Forearm ROM WFL Yes PT-OP-L Special Tests Start: 07/11/23 16:17 Freq: Status: Active Protocol: Document 07/12/23 11:28 [facility] (Rec: 07/12/23 16:20 [facility] [id number]) Special Tests Shoulder Special Tests Grind Labrum Test Results neg Drop Arm Rotator Cuff Test Results neg Clunk Test Test Results negative PT-OP-M Strength Start: 07/11/23 16:17 Freq: Status: Active Protocol: Document 07/12/23 11:28 [facility] (Rec: 07/12/23 16:20 [facility] [id number]) Shoulder Strength Shoulder Manual Muscle Testing Left Flexion 4 Good Extension 4 Good Abduction (C5) 4 Good Adduction 4+ Good+ External Rotation 4 Good Internal Rotation 4- Good- Horizontal Abduction 4- Good- Horizontal Adduction 4 Good Right Flexion 5 Normal Extension 5 Normal Abduction (C5) 5 Normal Adduction 5 Normal External Rotation 4+ Good+ Internal Rotation 4 Good Horizontal Abduction 4 Good Horizontal Adduction 4+ Good+ PT-OP-Q Treatments Start: 07/11/23 16:17 Freq: Status: Active Protocol: Document 08/14/23 09:01 [facility] (Rec: 08/14/23 09:49 [facility] [id number]) Cardio Equipment Upper Body Ergometer (UBE) Duration (Minutes) 3 Other mod manual pressure inf Therapeutic Exercises Supine Exercises Y Equipment Used L2 TB Reps/Minutes 10x should flex Resistance L2 TB Comments clicking, poorly tolerated fly Resistance 5#, 0#, L2 TB Reps/Minutes 10x ea Comments best tolerance L2 TB pec stretch Supine Exercise Name stretch various angles, snow angles Side bilateral Equipment Used over foam roller Reps/Minutes 10 SH 3 positions, 5 reps Comments feels fine serratus press Supine Exercise Name serratus punch Side bilateral Resistance 1. 7# Equipment Used spine along foam roller Reps/Minutes 1. 10 reps hold 5 sec 2. x10 Comments cues to slow down, emphasis control Prone Exercises Ts, Is, Ys Prone Exercise Name added to HEP (no HO given) Side bilateral Resistance 3>5#DB Ts, Is, AROM Ys Reps/Minutes 10 each Comments tactile cues for arm positioning Ys, neck neutral forehead on opp arm Standing Exercises Body blade Standing Exercise Name serratus press (90*FF), elbow flex overhead, front and side Resistance body blade and hammer Reps/Minutes 30 sec ea x2 BB, 30s hammer Comments good pec minor, long head bicep tiring haven't felt that spot weakness bf Manual Therapy Treatment Taping left shoulder Treatment Focus realignment and support Type of Tape Kinesio Tape Skin Inspection intact Comments I strip T10 to anterior shoulder 75% stretch 3 Y strips GH: base deltoid insertion surrounding deltoid 50% stretch, supraspinatus 50% stretch, post GH to ant 50% stretch Self-Care/Home Management Treatment Education Other Education cues pain-free motion and intensity, slow down and pay attention to compensatory movements PT-OP-T Assessment and Plan Start: 07/11/23 16:17 Freq: Status: Active Protocol: Document 08/14/23 09:01 [facility] (Rec: 08/14/23 09:49 [facility] [id number]) Physical Therapy Assessment Goals Two Impairment inability to perform usual recreational activites or workouts Impairment due to shoulder pain Short Term Goal (STG) Decrease pain by at least 50% with all usual activities STG Duration 08/10/23 Weather Forecaster Goal (LTG) Patient able to return to all prior activities without an increase in shoulder pain LTG Duration 09/10/23 One Impairment weakness may shoulders left greater than right Short Term Goal (STG) Patient to be instructed in HEP for the purposes of strengthening and stabilization of his shoulders to support therapy activities in clinic STG Duration 08/10/23 Skilled Nursing Goal (LTG) Patient to be independent and compliant with HEP and demonstrate 5/5 muscle strengthe may shoulders LTG Duration 09/10/23 Assessment Summary Assessment Trial UBE with poor sara, excess left shoulder elevation , popping and clicking which was minimized with inf pressure by PT on upper shoulder girdle. Continue ther ex emphasis on technique, pain-free ROM and lack of compensation. Trial KT tape for scapular positioning and shoulder support Physical Therapy Plan Frequency and Duration Frequency of Treatment 2x/Week Duration of treatment (weeks) 8 Plan of Care Start Date 07/12/23 Plan of Care End Date 09/10/23 Therapeutic Interventions Therapeutic Interventions Home Exercise Program,Manual Therapy,Patient/Caregiver Education,Self-Care/Home Management,Therapeutic Exercises Modalities Cold Pack/Ice Massage,Electric Stimulation,Hot Packs, Iontophoresis,Ultrasound Next Visit Focus/Plan Next Note Type Treatment Note Next Visit Plan Patient to order body blade. Assess response to KT tape. Continue shoulder stabilization and strengthening ex in pain-free ROM with cues to minimize compensation. Continue serratus press body blade and WB shld taps/walking , resisted rail walking. Continue bear quadruped plank.
--- NOTE | 2023-08-14 15:13 | PT.OTN ---
Current Diagnoses Pain in left shoulder (08/14/23) Stiffness of unspecified shoulder, not elsewhere classified (08/14/23) Weakness (08/14/23) Physical Therapy Treatment Note PT-OP-A Visit Information Start: 07/11/23 16:17 Freq: Status: Active Protocol: Document 08/14/23 09:01 [facility] (Rec: 08/14/23 09:49 [facility] [id number]) Out-Patient Physical Therapy Visit Information Visit Information Visit Type Treatment Note Visit Start Time 09:01 Visit Stop Time 09:45 Visit Number 7 Number of PHARMACIST APPRENTICE Visits 0 Evaluation Information Evaluation Date 07/12/23 PT-OP-B Current Condition Start: 07/11/23 16:17 Freq: Status: Active Protocol: Document 08/03/23 08:14 [facility]AK (Rec: 08/03/23 09:01 [facility] [id number]) Current Condition History of Current Condition Onset Date 1 1/2 years ago Current Complaints bilateral scapular winging left greater than right History of Current Condition 8-10 years ago noted winging of shoulder, has gradully started to limit his mobility and activities including rowing, normal workouts including pushups. Denies injury. No numbness or tingling. Hears grinding with movement of his left shoulder Right handed. Prior Treatments and Tests none no imaging Treatment Goals Patient/Caregiver Goals Be able to do all usual activities without pain or limitation. PT-OP-C Subjective Start: 07/11/23 16:17 Freq: Status: Active Protocol: Document 08/14/23 09:01 [facility] (Rec: 08/14/23 09:49 [facility] [id number]) OP-PT Subjective Patient Comments Patient Comments Not working out or golfing or house projects due to babies, so not doing typical things that irritate shoulder, except notices increased pain when holding baby in car seat on left painful. [place] soreness and pain after last PT session PT-OP-F Manual Assessment Start: 07/11/23 16:17 Freq: Status: Active Protocol: Document 07/12/23 11:28 SAK (Rec: 07/12/23 12:22 [facility] [id number]) Manual Assessments Soft Tissue Assessment Soft Tissue Mobility Assessment Tight upper traps PT-OP-H Neuro Start: 07/11/23 16:17 Freq: Status: Active Protocol: Document 07/12/23 11:28 SAK (Rec: 07/12/23 16:20 [facility] [id number]) Sensation Evaluation Gross Sensation Gross Sensation WNL PT-OP-J Posture/Palpation/Skin Start: 07/11/23 16:17 Freq: Status: Active Protocol: Document 07/12/23 11:28 [facility] (Rec: 07/12/23 12:22 [facility] [id number]) Posture Evaluation Position Sitting T-Spine Posture Increased Kyphosis Shoulder Posture (L) Rounded,(R) Rounded,(L) Forward Scapula Posture (L) Protracted,(R) Protracted Arm Posture (L) Internally Rotated,(R) Internally Rotated Palpation Assessment Location left shoulder Palpation Details popping and grinding sensation with AROM shoulder PT-OP-K Range of Motion Start: 07/11/23 16:17 Freq: Status: Active Protocol: Document 07/12/23 11:28 [facility] (Rec: 07/12/23 16:20 [facility] [id number]) Shoulder Goniometric Range of Motion Shoulder Left Flexion 170 Extension 35 Abduction 165 External Rotation at 45 degrees 75 Abduction Internal Rotation 55 Comments pain end range right Shoulder ROM WFL Yes Shoulder ROM Limitations Shoulder ROM Limitations Pain Elbow/Forearm Range of Motion Elbow/Forearm may Elbow/Forearm ROM WFL Yes PT-OP-L Special Tests Start: 07/11/23 16:17 Freq: Status: Active Protocol: Document 07/12/23 11:28 [facility] (Rec: 07/12/23 16:20 [facility] [id number]) Special Tests Shoulder Special Tests Grind Labrum Test Results neg Drop Arm Rotator Cuff Test Results neg Clunk Test Test Results negative PT-OP-M Strength Start: 07/11/23 16:17 Freq: Status: Active Protocol: Document 07/12/23 11:28 [facility] (Rec: 07/12/23 16:20 [facility] [id number]) Shoulder Strength Shoulder Manual Muscle Testing Left Flexion 4 Good Extension 4 Good Abduction (C5) 4 Good Adduction 4+ Good+ External Rotation 4 Good Internal Rotation 4- Good- Horizontal Abduction 4- Good- Horizontal Adduction 4 Good Right Flexion 5 Normal Extension 5 Normal Abduction (C5) 5 Normal Adduction 5 Normal External Rotation 4+ Good+ Internal Rotation 4 Good Horizontal Abduction 4 Good Horizontal Adduction 4+ Good+ PT-OP-Q Treatments Start: 07/11/23 16:17 Freq: Status: Active Protocol: Document 08/14/23 09:01 [facility] (Rec: 08/14/23 09:49 [facility] [id number]) Cardio Equipment Upper Body Ergometer (UBE) Duration (Minutes) 3 Other mod manual pressure inf Therapeutic Exercises Supine Exercises Y Equipment Used L2 TB Reps/Minutes 10x should flex Resistance L2 TB Comments clicking, poorly tolerated fly Resistance 5#, 0#, L2 TB Reps/Minutes 10x ea Comments best tolerance L2 TB pec stretch Supine Exercise Name stretch various angles, snow angles Side bilateral Equipment Used over foam roller Reps/Minutes 10 SH 3 positions, 5 reps Comments feels fine serratus press Supine Exercise Name serratus punch Side bilateral Resistance 1. 7# Equipment Used spine along foam roller Reps/Minutes 1. 10 reps hold 5 sec 2. x10 Comments cues to slow down, emphasis control Prone Exercises Ts, Is, Ys Prone Exercise Name added to HEP (no HO given) Side bilateral Resistance 3>5#DB Ts, Is, AROM Ys Reps/Minutes 10 each Comments tactile cues for arm positioning Ys, neck neutral forehead on opp arm Standing Exercises Body blade Standing Exercise Name serratus press (90*FF), elbow flex overhead, front and side Resistance body blade and hammer Reps/Minutes 30 sec ea x2 BB, 30s hammer Comments good pec minor, long head bicep tiring haven't felt that spot weakness bf Manual Therapy Treatment Taping left shoulder Treatment Focus realignment and support Type of Tape Kinesio Tape Skin Inspection intact Comments I strip T10 to anterior shoulder 75% stretch 3 Y strips GH: base deltoid insertion surrounding deltoid 50% stretch, supraspinatus 50% stretch, post GH to ant 50% stretch Self-Care/Home Management Treatment Education Other Education cues pain-free motion and intensity, slow down and pay attention to compensatory movements PT-OP-T Assessment and Plan Start: 07/11/23 16:17 Freq: Status: Active Protocol: Document 08/14/23 09:01 [facility] (Rec: 08/14/23 09:49 [facility] [id number]) Physical Therapy Assessment Goals Two Impairment inability to perform usual recreational activites or workouts Impairment due to shoulder pain Short Term Goal (STG) Decrease pain by at least 50% with all usual activities STG Duration 08/10/23 Senior Qa Analyst Goal (LTG) Patient able to return to all prior activities without an increase in shoulder pain LTG Duration 09/10/23 One Impairment weakness may shoulders left greater than right Short Term Goal (STG) Patient to be instructed in HEP for the purposes of strengthening and stabilization of his shoulders to support therapy activities in clinic STG Duration 08/10/23 Intermediate Goal (LTG) Patient to be independent and compliant with HEP and demonstrate 5/5 muscle strengthe may shoulders LTG Duration 09/10/23 Assessment Summary Assessment Trial UBE with poor sara, excess left shoulder elevation , popping and clicking which was minimized with inf pressure by PT on upper shoulder girdle. Continue ther ex emphasis on technique, pain-free ROM and lack of compensation. Trial KT tape for scapular positioning and shoulder support Physical Therapy Plan Frequency and Duration Frequency of Treatment 2x/Week Duration of treatment (weeks) 8 Plan of Care Start Date 07/12/23 Plan of Care End Date 09/10/23 Therapeutic Interventions Therapeutic Interventions Home Exercise Program,Manual Therapy,Patient/Caregiver Education,Self-Care/Home Management,Therapeutic Exercises Modalities Cold Pack/Ice Massage,Electric Stimulation,Hot Packs, Iontophoresis,Ultrasound Next Visit Focus/Plan Next Note Type Treatment Note Next Visit Plan Patient to order body blade. Assess response to KT tape. Continue shoulder stabilization and strengthening ex in pain-free ROM with cues to minimize compensation. Continue serratus press body blade and WB shld taps/walking , resisted rail walking. Continue bear quadruped plank.
--- NOTE | 2023-08-17 09:43 | PT.OTN ---
Current Diagnoses Pain in left shoulder (08/17/23) Stiffness of unspecified shoulder, not elsewhere classified (08/17/23) Weakness (08/17/23) Physical Therapy Treatment Note PT-OP-A Visit Information Start: 07/11/23 16:17 Freq: Status: Active Protocol: Document 08/17/23 09:05 SP (Rec: 08/17/23 09:48 SP [id number]) Out-Patient Physical Therapy Visit Information Visit Information Visit Type Treatment Note Visit Start Time 09:05 Visit Stop Time 09:43 Visit Number 8 Number of ASSISTED LIVING MANAGER Visits 1 Evaluation Information Evaluation Date 07/12/23 PT-OP-B Current Condition Start: 07/11/23 16:17 Freq: Status: Active Protocol: Document 08/03/23 08:14 [facility]AK (Rec: 08/03/23 09:01 [facility] [id number]) Current Condition History of Current Condition Onset Date 1 1/2 years ago Current Complaints bilateral scapular winging left greater than right History of Current Condition 8-10 years ago noted winging of shoulder, has gradully started to limit his mobility and activities including rowing, normal workouts including pushups. Denies injury. No numbness or tingling. Hears grinding with movement of his left shoulder Right handed. Prior Treatments and Tests none no imaging Treatment Goals Patient/Caregiver Goals Be able to do all usual activities without pain or limitation. PT-OP-C Subjective Start: 07/11/23 16:17 Freq: Status: Active Protocol: Document 08/17/23 09:05 SP (Rec: 08/17/23 09:48 SP [id number]) OP-PT Subjective Patient Comments Patient Comments Pt reports not sure how Ktaping helped, maybe placebo? Didn't notice a significant improvement. PT-OP-F Manual Assessment Start: 07/11/23 16:17 Freq: Status: Active Protocol: Document 07/12/23 11:28 [facility] (Rec: 07/12/23 12:22 [facility] [id number]) Manual Assessments Soft Tissue Assessment Soft Tissue Mobility Assessment Tight upper traps PT-OP-H Neuro Start: 07/11/23 16:17 Freq: Status: Active Protocol: Document 07/12/23 11:28 [facility] (Rec: 07/12/23 16:20 [facility] [id number]) Sensation Evaluation Gross Sensation Gross Sensation WNL PT-OP-J Posture/Palpation/Skin Start: 02/13/24 16:17 Freq: Status: Active Protocol: Document 07/12/23 11:28 [facility]AK (Rec: 07/12/23 12:22 [facility]AK [id number]) Posture Evaluation Position Sitting T-Spine Posture Increased Kyphosis Shoulder Posture (L) Rounded,(R) Rounded,(L) Forward Scapula Posture (L) Protracted,(R) Protracted Arm Posture (L) Internally Rotated,(R) Internally Rotated Palpation Assessment Location left shoulder Palpation Details popping and grinding sensation with AROM shoulder PT-OP-K Range of Motion Start: 07/11/23 16:17 Freq: Status: Active Protocol: Document 07/12/23 11:28 [facility] (Rec: 07/12/23 16:20 [facility] [id number]) Shoulder Goniometric Range of Motion Shoulder Left Flexion 170 Extension 35 Abduction 165 External Rotation at 45 degrees 75 Abduction Internal Rotation 55 Comments pain end range right Shoulder ROM WFL Yes Shoulder ROM Limitations Shoulder ROM Limitations Pain Elbow/Forearm Range of Motion Elbow/Forearm may Elbow/Forearm ROM WFL Yes PT-OP-L Special Tests Start: 07/11/23 16:17 Freq: Status: Active Protocol: Document 07/12/23 11:28 [facility]AK (Rec: 07/12/23 16:20 [facility]AK [id number]) Special Tests Shoulder Special Tests Grind Labrum Test Results neg Drop Arm Rotator Cuff Test Results neg Clunk Test Test Results negative PT-OP-M Strength Start: 07/11/23 16:17 Freq: Status: Active Protocol: Document 07/12/23 11:28 SAK (Rec: 07/12/23 16:20 [facility] [id number]) Shoulder Strength Shoulder Manual Muscle Testing Left Flexion 4 Good Extension 4 Good Abduction (C5) 4 Good Adduction 4+ Good+ External Rotation 4 Good Internal Rotation 4- Good- Horizontal Abduction 4- Good- Horizontal Adduction 4 Good Right Flexion 5 Normal Extension 5 Normal Abduction (C5) 5 Normal Adduction 5 Normal External Rotation 4+ Good+ Internal Rotation 4 Good Horizontal Abduction 4 Good Horizontal Adduction 4+ Good+ PT-OP-Q Treatments Start: 07/11/23 16:17 Freq: Status: Active Protocol: Document 08/17/23 09:05 SP (Rec: 08/17/23 09:48 SP [id number]) Cardio Equipment Upper Body Ergometer (UBE) Duration (Minutes) 3 RPM 50 Seat Position 11 Height 4.5 Other mod manual pressure inf- better with Ktape noted Therapeutic Exercises Supine Exercises Y Side bilateral Equipment Used L2 TB Reps/Minutes 10x Comments improved range with tactile cue SA fac /c inf humeral glide should flex Resistance L2 TB Equipment Used over foam roller Reps/Minutes x10 Comments improved range with tactile cue SA fac /c inf humeral glide fly Resistance L2 TB Equipment Used over foam roller Reps/Minutes 10x ea Comments cued wrist alignment, good slow scapular/GH control- little wobbly/pnfree pec stretch Supine Exercise Name stretch various angles, snow angles Side bilateral Equipment Used over foam roller Reps/Minutes 10 SH 3 positions, 5 reps Comments feels fine serratus press Supine Exercise Name serratus punch Side bilateral Resistance 1-2. 7# Equipment Used spine along foam roller Reps/Minutes 1. 10 reps hold 5 sec 2. x10 Comments cues to slow down, emphasis control Prone Exercises plank shld activities Prone Exercise Name BUE f/b/lat Equipment Used thighs over 65cm tball Reps/Minutes 5 reps f/b/l x2 setx Comments cues as needed for serratus press and core fac, dec small winging Ts, Is, Ys Prone Exercise Name reviewed HEP Side bilateral Resistance 5#DB Ts, Is, AROM>1# DB Ys Equipment Used over 65cm Tball Reps/Minutes 10 each Comments tactile cues for arm positioning Ys, neck neutral forehead on opp arm Standing Exercises Body blade Standing Exercise Name serratus press (90*FF), elbow flex front & overhead, front and side IR/ER Resistance body blade lrg (one purchased coming today 08/16) Reps/Minutes 30 sec ea x2 Comments good pec minor, long head bicep tiring haven't felt that spot weakness bf PT-OP-T Assessment and Plan Start: 07/11/23 16:17 Freq: Status: Active Protocol: Document 08/17/23 09:05 SP (Rec: 08/17/23 09:48 SP [id number]) Physical Therapy Assessment Goals Two Impairment inability to perform usual recreational activites or workouts Impairment due to shoulder pain Short Term Goal (STG) Decrease pain by at least 50% with all usual activities STG Duration 08/10/23 Tools Programmer Goal (LTG) Patient able to return to all prior activities without an increase in shoulder pain LTG Duration 09/10/23 One Impairment weakness may shoulders left greater than right Short Term Goal (STG) Patient to be instructed in HEP for the purposes of strengthening and stabilization of his shoulders to support therapy activities in clinic STG Duration 08/10/23 Mcfp Goal (LTG) Patient to be independent and compliant with HEP and demonstrate 5/5 muscle strengthe may shoulders LTG Duration 09/10/23 Assessment Summary Assessment Pt reports feels Ktaping IS helping support L shld, more confidence in Ys and resisted ex over foam roller today that hasn't been able in past tx's . Improved humeral inf glide / c tactil cue into Ys supine over foam roller, able duplicate /c rep progression and more confidence into ROM today. Improved less very slight winging ball walkouts post cues for core and serratus press and softer stepping. Pt reports no pain. Physical Therapy Plan Frequency and Duration Frequency of Treatment 2x/Week Duration of treatment (weeks) 8 Plan of Care Start Date 07/12/23 Plan of Care End Date 09/10/23 Therapeutic Interventions Therapeutic Interventions Home Exercise Program,Manual Therapy,Patient/Caregiver Education,Self-Care/Home Management,Therapeutic Exercises Modalities Cold Pack/Ice Massage,Electric Stimulation,Hot Packs, Iontophoresis,Ultrasound Next Visit Focus/Plan Next Note Type Treatment Note Next Visit Plan Assess response to KT tape passed last tx (almost week donned). Next trial rhythmic stab /c 55cm ball supine. Continue shoulder stabilization and strengthening ex in pain-free ROM with cues to minimize compensation. Continue serratus press body blade and WB shld taps/walking , resisted rail walking. Continue bear quadruped plank.
--- NOTE | 2023-08-23 10:28 | PT.OTN ---
Current Diagnoses Pain in left shoulder (08/23/23) Stiffness of unspecified shoulder, not elsewhere classified (08/23/23) Weakness (08/23/23) Physical Therapy Treatment Note PT-OP-A Visit Information Start: 07/11/23 16:17 Freq: Status: Active Protocol: Document 08/23/23 09:48 SP (Rec: 08/23/23 10:43 SP [id number]) Out-Patient Physical Therapy Visit Information Visit Information Visit Type Treatment Note Visit Start Time 09:48 Visit Stop Time 10:28 Visit Number 9 Number of ENVELOPE FOLDING MACHINE ADJUSTER Visits 2 Evaluation Information Evaluation Date 07/12/23 PT-OP-B Current Condition Start: 07/11/23 16:17 Freq: Status: Active Protocol: Document 08/03/23 08:14 SAK (Rec: 08/03/23 09:01 SAK [id number]) Current Condition History of Current Condition Onset Date 1 1/2 years ago Current Complaints bilateral scapular winging left greater than right History of Current Condition 8-10 years ago noted winging of shoulder, has gradully started to limit his mobility and activities including rowing, normal workouts including pushups. Denies injury. No numbness or tingling. Hears grinding with movement of his left shoulder Right handed. Prior Treatments and Tests none no imaging Treatment Goals Patient/Caregiver Goals Be able to do all usual activities without pain or limitation. PT-OP-C Subjective Start: 07/11/23 16:17 Freq: Status: Active Protocol: Document 08/23/23 09:48 SP (Rec: 08/23/23 10:43 SP [id number]) OP-PT Subjective Patient Comments Patient Comments Pt reports took off Ktaping 2 days ago, it was 50/50 if helped support with activity. He has 3 weeks left paternity leave and at least 10 week notice before PRT. PT-OP-F Manual Assessment Start: 07/11/23 16:17 Freq: Status: Active Protocol: Document 07/12/23 11:28 SAK (Rec: 07/12/23 12:22 SAK [id number]) Manual Assessments Soft Tissue Assessment Soft Tissue Mobility Assessment Tight upper traps PT-OP-H Neuro Start: 07/11/23 16:17 Freq: Status: Active Protocol: Document 07/12/23 11:28 SAK (Rec: 07/12/23 16:20 SAK [id number]) Sensation Evaluation Gross Sensation Gross Sensation WNL PT-OP-J Posture/Palpation/Skin Start: 07/11/23 16:17 Freq: Status: Active Protocol: Document 07/12/23 11:28 [facility] (Rec: 07/12/23 12:22 [facility] [id number]) Posture Evaluation Position Sitting T-Spine Posture Increased Kyphosis Shoulder Posture (L) Rounded,(R) Rounded,(L) Forward Scapula Posture (L) Protracted,(R) Protracted Arm Posture (L) Internally Rotated,(R) Internally Rotated Palpation Assessment Location left shoulder Palpation Details popping and grinding sensation with AROM shoulder PT-OP-K Range of Motion Start: 07/11/23 16:17 Freq: Status: Active Protocol: Document 07/12/23 11:28 [facility] (Rec: 07/12/23 16:20 [facility] [id number]) Shoulder Goniometric Range of Motion Shoulder Left Flexion 170 Extension 35 Abduction 165 External Rotation at 45 degrees 75 Abduction Internal Rotation 55 Comments pain end range right Shoulder ROM WFL Yes Shoulder ROM Limitations Shoulder ROM Limitations Pain Elbow/Forearm Range of Motion Elbow/Forearm may Elbow/Forearm ROM WFL Yes PT-OP-L Special Tests Start: 07/11/23 16:17 Freq: Status: Active Protocol: Document 07/12/23 11:28 [facility] (Rec: 07/12/23 16:20 [facility] [id number]) Special Tests Shoulder Special Tests Grind Labrum Test Results neg Drop Arm Rotator Cuff Test Results neg Clunk Test Test Results negative PT-OP-M Strength Start: 07/11/23 16:17 Freq: Status: Active Protocol: Document 07/12/23 11:28 [facility] (Rec: 07/12/23 16:20 [facility] [id number]) Shoulder Strength Shoulder Manual Muscle Testing Left Flexion 4 Good Extension 4 Good Abduction (C5) 4 Good Adduction 4+ Good+ External Rotation 4 Good Internal Rotation 4- Good- Horizontal Abduction 4- Good- Horizontal Adduction 4 Good Right Flexion 5 Normal Extension 5 Normal Abduction (C5) 5 Normal Adduction 5 Normal External Rotation 4+ Good+ Internal Rotation 4 Good Horizontal Abduction 4 Good Horizontal Adduction 4+ Good+ PT-OP-Q Treatments Start: 07/11/23 16:17 Freq: Status: Active Protocol: Document 08/23/23 09:48 SP (Rec: 08/23/23 10:43 SP [id number]) Cardio Equipment Upper Body Ergometer (UBE) Duration (Minutes) 6 RPM 50 Seat Position standing Height 8 Other better ok self stabilizing scapular control more UE effort Gym Equipment Cable Column (Body Solid) Rows Resistance 4 plates Reps/Time x20- 3 instances sub scap bubble wrap pop PD Details under hand & moderate overhand restorative coordinator Resistance 4plates Reps/Time [id number] popping over hand 1st ribvs sup scap Therapeutic Exercises Sitting Exercises rhythmic stab in FF Sitting Exercise Name FF 90 deg UE extended Side bilateral Resistance 55cm tball Reps/Minutes 30 sec x3 Comments therapist forceful pressure various directions- Standing Exercises pushc up Standing Exercise Name wall: veronique, W Reps/Minutes x10 each Comments occ slight wing but stop able reset wall walking Standing Exercise Name BUEs on rail- added to HEP- declined HO Resistance TB #3 (PT GTB) Equipment Used on rail best Reps/Minutes 10 ft x4 reps Comments reports slight distal RTC unstable but not pain Body blade Standing Exercise Name serratus press (90*FF), elbow flex front & overhead, dwd, front, IR/ER(c&o) Side bilateral Resistance body blade lrg (one purchased not as strong whip feeling) Reps/Minutes 30 sec ea x2 Comments good pec minor, long head bicep tiring haven't felt that spot weakness bf Manual Therapy Treatment Taping left shoulder Treatment Focus realignment and support Type of Tape Kinesio Tape Skin Inspection intact Comments I strip T10 to anterior shoulder 75% stretch 3 Y strips GH: base deltoid insertion surrounding deltoid 50% stretch, supraspinatus 50% stretch, post GH to ant 50% stretch PT-OP-T Assessment and Plan Start: 07/11/23 16:17 Freq: Status: Active Protocol: Document 08/23/23 09:48 SP (Rec: 08/23/23 10:43 SP [id number]) Physical Therapy Assessment Goals Two Impairment inability to perform usual recreational activites or workouts Impairment due to shoulder pain Short Term Goal (STG) Decrease pain by at least 50% with all usual activities STG Duration 08/10/23 Deputy Sheriff Bailiff Goal (LTG) Patient able to return to all prior activities without an increase in shoulder pain LTG Duration 09/10/23 One Impairment weakness may shoulders left greater than right Short Term Goal (STG) Patient to be instructed in HEP for the purposes of strengthening and stabilization of his shoulders to support therapy activities in clinic STG Duration 08/10/23 Skilled Nursing Goal (LTG) Patient to be independent and compliant with HEP and demonstrate 5/5 muscle strengthe may shoulders LTG Duration 09/10/23 Assessment Summary Assessment Pt reports Ktaping does help give proximal stability during wall walking. He reported slight bubble popping during pull down and row ther ex but pnfree. Good muscular effort tiring during rhythmic stab ball and body blade this tx. Physical Therapy Plan Frequency and Duration Frequency of Treatment 2x/Week Duration of treatment (weeks) 8 Plan of Care Start Date 07/12/23 Plan of Care End Date 09/10/23 Therapeutic Interventions Therapeutic Interventions Home Exercise Program,Manual Therapy,Patient/Caregiver Education,Self-Care/Home Management,Therapeutic Exercises Modalities Cold Pack/Ice Massage,Electric Stimulation,Hot Packs, Iontophoresis,Ultrasound Next Visit Focus/Plan Next Note Type Treatment Note Next Visit Plan PN next tx. Assess response to KT tape passed last tx (almost week donned). Response to rhythmic stab /c 55cm ball supine. Continue shoulder stabilization and strengthening ex in pain-free ROM with cues to minimize compensation. Continue serratus press body blade and WB shld taps/walking , resisted rail walking. Continue bear quadruped plank.
--- NOTE | 2023-08-29 09:45 | PT.OTN ---
Current Diagnoses Pain in left shoulder (08/29/23) Stiffness of unspecified shoulder, not elsewhere classified (08/29/23) Weakness (08/29/23) Physical Therapy Treatment Note PT-OP-A Visit Information Start: 07/11/23 16:17 Freq: Status: Active Protocol: Document 08/29/23 08:59 SP (Rec: 08/29/23 09:50 SP [id number]) Out-Patient Physical Therapy Visit Information Visit Information Visit Type Treatment Note Visit Start Time 09:00 Visit Stop Time 09:45 Visit Number 10 Number of PEDIATRIC NEUROPSYCHOLOGIST Visits 3 Evaluation Information Evaluation Date 07/12/23 PT-OP-B Current Condition Start: 07/11/23 16:17 Freq: Status: Active Protocol: Document 08/03/23 08:14 SAK (Rec: 08/03/23 09:01 SAK [id number]) Current Condition History of Current Condition Onset Date 1 1/2 years ago Current Complaints bilateral scapular winging left greater than right History of Current Condition 8-10 years ago noted winging of shoulder, has gradully started to limit his mobility and activities including rowing, normal workouts including pushups. Denies injury. No numbness or tingling. Hears grinding with movement of his left shoulder Right handed. Prior Treatments and Tests none no imaging Treatment Goals Patient/Caregiver Goals Be able to do all usual activities without pain or limitation. PT-OP-C Subjective Start: 07/11/23 16:17 Freq: Status: Active Protocol: Document 08/29/23 08:59 SP (Rec: 08/29/23 09:50 SP [id number]) OP-PT Subjective Patient Comments Patient Comments Pt reports doing ok. Yesterday soreness but today feels great. Hasn't done any WB activities. He stated Ktaping does help, lasted 2 days before started to pull off. 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 He had a instance of intolerable pain in L shld WB on L forearm handing burp cloth, went away as soon and RUE WB on bed . Also reaching behind him on L abd/er and had instant 9/10 pain but goes away when stops the reach. PT-OP-F Manual Assessment Start: 07/11/23 16:17 Freq: Status: Active Protocol: Document 07/12/23 11:28 SAK (Rec: 07/12/23 12:22 [facility] [id number]) Manual Assessments Soft Tissue Assessment Soft Tissue Mobility Assessment Tight upper traps PT-OP-H Neuro Start: 07/11/23 16:17 Freq: Status: Active Protocol: Document 07/12/23 11:28 [facility] (Rec: 07/12/23 16:20 [facility] [id number]) Sensation Evaluation Gross Sensation Gross Sensation WNL PT-OP-J Posture/Palpation/Skin Start: 07/11/23 16:17 Freq: Status: Active Protocol: Document 07/12/23 11:28 [facility] (Rec: 07/12/23 12:22 [facility] [id number]) Posture Evaluation Position Sitting T-Spine Posture Increased Kyphosis Shoulder Posture (L) Rounded,(R) Rounded,(L) Forward Scapula Posture (L) Protracted,(R) Protracted Arm Posture (L) Internally Rotated,(R) Internally Rotated Palpation Assessment Location left shoulder Palpation Details popping and grinding sensation with AROM shoulder PT-OP-K Range of Motion Start: 07/11/23 16:17 Freq: Status: Active Protocol: Document 07/12/23 11:28 [facility] (Rec: 07/12/23 16:20 [facility] [id number]) Shoulder Goniometric Range of Motion Shoulder Left Flexion 170 Extension 35 Abduction 165 External Rotation at 45 degrees 75 Abduction Internal Rotation 55 Comments pain end range right Shoulder ROM WFL Yes Shoulder ROM Limitations Shoulder ROM Limitations Pain Elbow/Forearm Range of Motion Elbow/Forearm may Elbow/Forearm ROM WFL Yes PT-OP-L Special Tests Start: 07/11/23 16:17 Freq: Status: Active Protocol: Document 07/12/23 11:28 [facility] (Rec: 07/12/23 16:20 [facility] [id number]) Special Tests Shoulder Special Tests Grind Labrum Test Results neg Drop Arm Rotator Cuff Test Results neg Clunk Test Test Results negative PT-OP-M Strength Start: 07/11/23 16:17 Freq: Status: Active Protocol: Document 07/12/23 11:28 [facility] (Rec: 07/12/23 16:20 [facility] [id number]) Shoulder Strength Shoulder Manual Muscle Testing Left Flexion 4 Good Extension 4 Good Abduction (C5) 4 Good Adduction 4+ Good+ External Rotation 4 Good Internal Rotation 4- Good- Horizontal Abduction 4- Good- Horizontal Adduction 4 Good Right Flexion 5 Normal Extension 5 Normal Abduction (C5) 5 Normal Adduction 5 Normal External Rotation 4+ Good+ Internal Rotation 4 Good Horizontal Abduction 4 Good Horizontal Adduction 4+ Good+ PT-OP-Q Treatments Start: 07/11/23 16:17 Freq: Status: Active Protocol: Document 08/29/23 08:59 SP (Rec: 08/29/23 09:50 SP [id number]) Cardio Equipment Upper Body Ergometer (UBE) Duration (Minutes) 6 RPM 50 Seat Position standing Height 8 Other 1 min f/b alternating Gym Equipment Cable Column (Body Solid) Rows Details squat rows Resistance 3 plates Reps/Time x15, 1st couple reps crunching then fine PD Details under hand & moderate overhand mold dumper Resistance 4plates Reps/Time x15- crunching over AC jt at top range con/ecc Therapeutic Exercises Prone Exercises Ts, Is, Ys Prone Exercise Name reviewed HEP Side left Resistance 3>2#DB Ts, 1# DB Ys, abd/ER 90 deg Equipment Used table, foam under distal humerus ER Reps/Minutes 2x10 each- ok no popping 2nd set Comments tactile cues LT/rhomboid fac con/ecc scap set- improves stab Sitting Exercises tricep pushup Sitting Exercise Name trialed in PT Equipment Used bench Reps/Minutes 2x10 reps Comments States feel vulnerable but no pain/adverse affect, triceps quivering. rhythmic stab in FF Sitting Exercise Name FF 90 deg UE extended: EC Side bilateral Resistance 55cm tball Reps/Minutes 30 sec x3 Comments therapist forceful pressure various directions- Standing Exercises Body blade Standing Exercise Name D2 flex/ext, D1 flex/ext Side bilateral Equipment Used large Reps/Minutes 30 sec ea x2 Comments good pec minor, long head bicep tiring haven't felt that spot weakness bf Manual Therapy Treatment Soft Tissue Mobilization L shld Body Location L Teres, Infrasp distal att, deep to distal tendons Mobilization Type Rolling Intensity/Depth Moderate Body Position Prone Comments eliminated pain abd/er end range pain post manual. Taping left shoulder Treatment Focus realignment and support Type of Tape Kinesio Tape Skin Inspection intact Comments I strip T10 to anterior shoulder 75% stretch 3 Y strips GH: base deltoid insertion surrounding deltoid 50% stretch, supraspinatus 50% stretch, post GH to ant 50% stretch PT-OP-T Assessment and Plan Start: 07/11/23 16:17 Freq: Status: Active Protocol: Document 08/29/23 08:59 SP (Rec: 08/29/23 09:50 SP [id number]) Physical Therapy Assessment Goals Two Impairment inability to perform usual recreational activites or workouts Impairment due to shoulder pain Short Term Goal (STG) Decrease pain by at least 50% with all usual activities STG Duration 08/10/23 Shoe Shanker Goal (LTG) Patient able to return to all prior activities without an increase in shoulder pain LTG Duration 09/10/23 One Impairment weakness may shoulders left greater than right Short Term Goal (STG) Patient to be instructed in HEP for the purposes of strengthening and stabilization of his shoulders to support therapy activities in clinic STG Duration 08/10/23 Shoe Shanker Goal (LTG) Patient to be independent and compliant with HEP and demonstrate 5/5 muscle strengthe may shoulders LTG Duration 09/10/23 Assessment Summary Assessment Pt Ktaping supporting activities. Still having popping top shoulder with OH abd/er at times activities and occasional WB home reported, tactile cues for LT and rhomboid engagement during ther ex today. Improved deep post GH jt pain end range abd/ ER post manual. Next tx condense HEP. Physical Therapy Plan Frequency and Duration Frequency of Treatment 2x/Week Duration of treatment (weeks) 8 Plan of Care Start Date 07/12/23 Plan of Care End Date 09/10/23 Therapeutic Interventions Therapeutic Interventions Home Exercise Program,Manual Therapy,Patient/Caregiver Education,Self-Care/Home Management,Therapeutic Exercises Modalities Cold Pack/Ice Massage,Electric Stimulation,Hot Packs, Iontophoresis,Ultrasound Next Visit Focus/Plan Next Note Type Treatment Note Next Visit Plan PN next tx. Assess response to KT tape passed last tx (almost week donned). Response to rhythmic stab /c 55cm ball supine. Continue shoulder stabilization and strengthening ex in pain-free ROM with cues to minimize compensation. Continue serratus press body blade and WB shld taps/walking , resisted rail walking. Continue bear quadruped plank.
--- NOTE | 2023-09-05 09:47 | PT.OTN ---
Current Diagnoses Pain in left shoulder (09/05/23) Stiffness of unspecified shoulder, not elsewhere classified (09/05/23) Weakness (09/05/23) Physical Therapy Treatment Note PT-OP-A Visit Information Start: 07/11/23 16:17 Freq: Status: Active Protocol: Document 09/05/23 09:06 SP (Rec: 09/05/23 09:49 SP [id number]) Out-Patient Physical Therapy Visit Information Visit Information Visit Type Treatment Note Visit Start Time 09:06 Visit Stop Time 09:47 Visit Number 11 Number of CURTAIN CUTTER HAND Visits 4 Evaluation Information Evaluation Date 07/12/23 PT-OP-B Current Condition Start: 07/11/23 16:17 Freq: Status: Active Protocol: Document 08/03/23 08:14 SAK (Rec: 08/03/23 09:01 SAK [id number]) Current Condition History of Current Condition Onset Date 1 1/2 years ago Current Complaints bilateral scapular winging left greater than right History of Current Condition 8-10 years ago noted winging of shoulder, has gradully started to limit his mobility and activities including rowing, normal workouts including pushups. Denies injury. No numbness or tingling. Hears grinding with movement of his left shoulder Right handed. Prior Treatments and Tests none no imaging Treatment Goals Patient/Caregiver Goals Be able to do all usual activities without pain or limitation. PT-OP-C Subjective Start: 07/11/23 16:17 Freq: Status: Active Protocol: Document 09/05/23 09:06 SP (Rec: 09/05/23 09:49 SP [id number]) OP-PT Subjective Patient Comments Patient Comments Pt reports returns to work next week then leaving [place] for while in 4 weeks. Feels getting stronger, still click/ popping with dynamic reach out side and back quick motions but during HEP repetitive after 2 initial 2 reps better, more stable and pnfree. Better if adjusts long axis ER pnfree. Able to carry kids in carriers BUE and stable in shld, still thinks Ktaping helps. PT-OP-F Manual Assessment Start: 07/11/23 16:17 Freq: Status: Active Protocol: Document 07/12/23 11:28 SAK (Rec: 07/12/23 12:22 SAK [id number]) Manual Assessments Soft Tissue Assessment Soft Tissue Mobility Assessment Tight upper traps PT-OP-H Neuro Start: 07/11/23 16:17 Freq: Status: Active Protocol: Document 07/12/23 11:28 SAK (Rec: 07/12/23 16:20 [facility] [id number]) Sensation Evaluation Gross Sensation Gross Sensation WNL PT-OP-J Posture/Palpation/Skin Start: 07/11/23 16:17 Freq: Status: Active Protocol: Document 07/12/23 11:28 [facility] (Rec: 07/12/23 12:22 [facility] [id number]) Posture Evaluation Position Sitting T-Spine Posture Increased Kyphosis Shoulder Posture (L) Rounded,(R) Rounded,(L) Forward Scapula Posture (L) Protracted,(R) Protracted Arm Posture (L) Internally Rotated,(R) Internally Rotated Palpation Assessment Location left shoulder Palpation Details popping and grinding sensation with AROM shoulder PT-OP-K Range of Motion Start: 07/11/23 16:17 Freq: Status: Active Protocol: Document 07/12/23 11:28 [facility] (Rec: 07/12/23 16:20 [facility] [id number]) Shoulder Goniometric Range of Motion Shoulder Left Flexion 170 Extension 35 Abduction 165 External Rotation at 45 degrees 75 Abduction Internal Rotation 55 Comments pain end range right Shoulder ROM WFL Yes Shoulder ROM Limitations Shoulder ROM Limitations Pain Elbow/Forearm Range of Motion Elbow/Forearm may Elbow/Forearm ROM WFL Yes PT-OP-L Special Tests Start: 07/11/23 16:17 Freq: Status: Active Protocol: Document 07/12/23 11:28 [facility] (Rec: 07/12/23 16:20 [facility] [id number]) Special Tests Shoulder Special Tests Grind Labrum Test Results neg Drop Arm Rotator Cuff Test Results neg Clunk Test Test Results negative PT-OP-M Strength Start: 07/11/23 16:17 Freq: Status: Active Protocol: Document 07/12/23 11:28 SAK (Rec: 07/12/23 16:20 [facility] [id number]) Shoulder Strength Shoulder Manual Muscle Testing Left Flexion 4 Good Extension 4 Good Abduction (C5) 4 Good Adduction 4+ Good+ External Rotation 4 Good Internal Rotation 4- Good- Horizontal Abduction 4- Good- Horizontal Adduction 4 Good Right Flexion 5 Normal Extension 5 Normal Abduction (C5) 5 Normal Adduction 5 Normal External Rotation 4+ Good+ Internal Rotation 4 Good Horizontal Abduction 4 Good Horizontal Adduction 4+ Good+ PT-OP-Q Treatments Start: 07/11/23 16:17 Freq: Status: Active Protocol: Document 09/05/23 09:06 SP (Rec: 09/05/23 09:49 SP [id number]) Therapeutic Exercises Supine Exercises serratus press Supine Exercise Name serratus punch Side bilateral Resistance 25# DB- bilateral Equipment Used spine along foam roller Reps/Minutes x10 Comments fine could do more- will increase home Prone Exercises plank shld activities Prone Exercise Name 1. elbow plank 2. push up Equipment Used *occ cues for SA press reduction wing tiring Reps/Minutes 1. 1m30s (his goal 2m) 2. 15 reps noted wing L>R pnfree Comments reports tiring no shoulder pain but alot self correction scap /c pushups Standing Exercises wt carrying Standing Exercise Name 1. garcia/suitcase 2. torch OH &garcia Side bilateral Resistance 25# DB Reps/Minutes 50 ft 1. 1 laps 2. 2 laps total Comments reports carrying down fine, OH little more unstable R than L but not pain wall walking Comments ed continue /c TB- interscap strengthening reach OH Standing Exercise Name scaption, abd Side bilateral Resistance TB #3 orange > progressed 5#>7 # DB Reps/Minutes 2x15 reps each UE: DB and TB Comments initial click 2 reps then ok, tiring PT-OP-T Assessment and Plan Start: 07/11/23 16:17 Freq: Status: Active Protocol: Document 09/05/23 09:06 SP (Rec: 09/05/23 09:49 SP [id number]) Physical Therapy Assessment Goals Two Impairment inability to perform usual recreational activites or workouts Impairment due to shoulder pain Short Term Goal (STG) Decrease pain by at least 50% with all usual activities STG Duration 08/10/23 Group Home Goal (LTG) Patient able to return to all prior activities without an increase in shoulder pain LTG Duration 09/10/23 One Impairment weakness may shoulders left greater than right Short Term Goal (STG) Patient to be instructed in HEP for the purposes of strengthening and stabilization of his shoulders to support therapy activities in clinic STG Duration 08/10/23 Group Home Goal (LTG) Patient to be independent and compliant with HEP and demonstrate 5/5 muscle strengthe may shoulders LTG Duration 09/10/23 Assessment Summary Assessment Pt reduction in clicking in L scapula, only first few reps then scap musculature stab improves during resisted scaption and ABD . Continues demonstrate winging L>R, self correction during plank but worse with pushups pnfree. Physical Therapy Plan Frequency and Duration Frequency of Treatment 2x/Week Duration of treatment (weeks) 8 Plan of Care Start Date 07/12/23 Plan of Care End Date 09/10/23 Therapeutic Interventions Therapeutic Interventions Home Exercise Program,Manual Therapy,Patient/Caregiver Education,Self-Care/Home Management,Therapeutic Exercises Modalities Cold Pack/Ice Massage,Electric Stimulation,Hot Packs, Iontophoresis,Ultrasound Next Visit Focus/Plan Next Note Type Treatment Note Next Visit Plan 12th visit and update POC PN next tx, assess 1 or 2x/wk. Assess response to KT tape passed last tx (almost week donned). Continue shoulder stabilization and strengthening ex in pain-free ROM with cues to minimize compensation. Continue serratus press body blade and WB shld taps/walking , resisted rail walking. Continue bear quadruped plank.
--- NOTE | 2023-09-07 16:27 | PT.OTN ---
Current Diagnoses Pain in left shoulder (09/07/23) Stiffness of unspecified shoulder, not elsewhere classified (09/07/23) Weakness (09/07/23) Physical Therapy Treatment Note PT-OP-A Visit Information Start: 07/11/23 16:17 Freq: Status: Active Protocol: Document 09/07/23 14:30 SAK (Rec: 09/07/23 15:20 [facility] [id number]) Out-Patient Physical Therapy Visit Information Visit Information Visit Type Treatment Note Visit Start Time 14:30 Visit Stop Time 15:17 Visit Number 12 Number of MANAGER STONE Visits 0 Evaluation Information Evaluation Date 07/12/23 PT-OP-B Current Condition Start: 07/11/23 16:17 Freq: Status: Active Protocol: Document 08/03/23 08:14 SAK (Rec: 08/03/23 09:01 [facility] [id number]) Current Condition History of Current Condition Onset Date 1 1/2 years ago Current Complaints bilateral scapular winging left greater than right History of Current Condition 8-10 years ago noted winging of shoulder, has gradully started to limit his mobility and activities including rowing, normal workouts including pushups. Denies injury. No numbness or tingling. Hears grinding with movement of his left shoulder Right handed. Prior Treatments and Tests none no imaging Treatment Goals Patient/Caregiver Goals Be able to do all usual activities without pain or limitation. PT-OP-C Subjective Start: 07/11/23 16:17 Freq: Status: Active Protocol: Document 09/07/23 14:30 SAK (Rec: 09/07/23 15:20 [facility] [id number]) OP-PT Subjective Patient Comments Patient Comments First couple repetitions of an exercise popping and a little painful then goes away with subsequent repetitions. Feeling of popping persists with general movement. 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 very painful PT-OP-F Manual Assessment Start: 07/11/23 16:17 Freq: Status: Active Protocol: Document 07/12/23 11:28 SAK (Rec: 07/12/23 12:22 [facility] [id number]) Manual Assessments Soft Tissue Assessment Soft Tissue Mobility Assessment Tight upper traps PT-OP-H Neuro Start: 07/11/23 16:17 Freq: Status: Active Protocol: Document 07/12/23 11:28 SAK (Rec: 07/12/23 16:20 [facility] [id number]) Sensation Evaluation Gross Sensation Gross Sensation WNL PT-OP-J Posture/Palpation/Skin Start: 07/11/23 16:17 Freq: Status: Active Protocol: Document 07/12/23 11:28 [facility] (Rec: 07/12/23 12:22 [facility] [id number]) Posture Evaluation Position Sitting T-Spine Posture Increased Kyphosis Shoulder Posture (L) Rounded,(R) Rounded,(L) Forward Scapula Posture (L) Protracted,(R) Protracted Arm Posture (L) Internally Rotated,(R) Internally Rotated Palpation Assessment Location left shoulder Palpation Details popping and grinding sensation with AROM shoulder PT-OP-K Range of Motion Start: 07/11/23 16:17 Freq: Status: Active Protocol: Document 07/12/23 11:28 [facility] (Rec: 07/12/23 16:20 [facility] [id number]) Shoulder Goniometric Range of Motion Shoulder Left Flexion 170 Extension 35 Abduction 165 External Rotation at 45 degrees 75 Abduction Internal Rotation 55 Comments pain end range right Shoulder ROM WFL Yes Shoulder ROM Limitations Shoulder ROM Limitations Pain Elbow/Forearm Range of Motion Elbow/Forearm may Elbow/Forearm ROM WFL Yes PT-OP-L Special Tests Start: 07/11/23 16:17 Freq: Status: Active Protocol: Document 07/12/23 11:28 [facility] (Rec: 07/12/23 16:20 [facility] [id number]) Special Tests Shoulder Special Tests Grind Labrum Test Results neg Drop Arm Rotator Cuff Test Results neg Clunk Test Test Results negative PT-OP-M Strength Start: 07/11/23 16:17 Freq: Status: Active Protocol: Document 07/12/23 11:28 [facility] (Rec: 07/12/23 16:20 [facility] [id number]) Shoulder Strength Shoulder Manual Muscle Testing Left Flexion 4 Good Extension 4 Good Abduction (C5) 4 Good Adduction 4+ Good+ External Rotation 4 Good Internal Rotation 4- Good- Horizontal Abduction 4- Good- Horizontal Adduction 4 Good Right Flexion 5 Normal Extension 5 Normal Abduction (C5) 5 Normal Adduction 5 Normal External Rotation 4+ Good+ Internal Rotation 4 Good Horizontal Abduction 4 Good Horizontal Adduction 4+ Good+ PT-OP-Q Treatments Start: 07/11/23 16:17 Freq: Status: Active Protocol: Document 09/07/23 14:30 [facility] (Rec: 09/07/23 15:20 [facility] [id number]) Cardio Equipment Upper Body Ergometer (UBE) Duration (Minutes) 6 RPM 50 Seat Position sitting Height 8 Other 1 min f/b alternating Therapeutic Exercises Sidelying Exercises side plank Reps/Minutes 1x ea side Comments fatigue 5 sec Standing Exercises lateral raise Equipment Used 10# elbows bent, L2 TB elbows extended Reps/Minutes 10x2 upright row Equipment Used 10# Reps/Minutes 10x2 Body blade Standing Exercise Name D2 flex/ext, D1 flex/ext, IR/ ER Side bilateral Equipment Used large Reps/Minutes 30 sec ea x2 Comments good pec minor, long head bicep tiring haven't felt that spot weakness bf PT-OP-T Assessment and Plan Start: 07/11/23 16:17 Freq: Status: Active Protocol: Document 09/07/23 14:30 [facility] (Rec: 09/07/23 15:20 [facility] [id number]) Physical Therapy Assessment Goals Two Impairment inability to perform usual recreational activites or workouts Impairment due to shoulder pain Short Term Goal (STG) Decrease pain by at least 50% with all usual activities STG Duration 08/10/23 Fisher Eel Goal (LTG) Patient able to return to all prior activities without an increase in shoulder pain LTG Duration 09/10/23 One Impairment weakness may shoulders left greater than right Short Term Goal (STG) Patient to be instructed in HEP for the purposes of strengthening and stabilization of his shoulders to support therapy activities in clinic STG Duration 08/10/23 [place] Eel Goal (LTG) Patient to be independent and compliant with HEP and demonstrate 5/5 muscle strengthe may shoulders LTG Duration 09/10/23 Assessment Summary Assessment Patient has made good progress with HEP and activity tolerance though continues to have episodes of instability and brief intense pain, especially reaching back overhead or back behind him arm down. Updated HEP HO including adding functional movements with TB including toward painful motion but in pain-free ROM. Patient demonstrated good understanding of all and should do well with indep HEP. Physical Therapy Plan Discharge Physical Therapy Discharge Reasons Patient Request Discharge Comments Patient reports he feels like he has good HEP, will be starting back to work and traveling so PT will be difficult. Would like to try HEP on his own for awhile, possibly request further PT in the future.
== END 2023-09-11 12:28 | disposition home or self-care (01) ==
LOC: PHYS 14:30
PROVIDERS: PCP Radiology Diagnostic Radiology
DX: M25.619 Stiffness of unspecified shoulder, not elsewhere classified (principal); R53.1 Weakness; M25.512 Pain in left shoulder
CPT/HCPCS: 97110; 97140; 97161; 97535